=== PATIENT | female | born 1950 | race Caucasian/White ===

== ENCOUNTER 2018-12-19 14:05 | Inpatient (IN) | payer MEDICARE, OTHER ==
[2018-12-19] MEDS ORDERED: SODIUM CHLORIDE 0.9% 1,000 ML IV ONE (14:27)
[2018-12-19] MEDS ORDERED: IPRATROPIUM/ALBUTEROL 3 ML NEB INH STA (14:27)
--- NOTE | 2018-12-19 14:30 | ED Physician Documentation ---
PD HPI URI - Stated complaint Stated Complaint: WEAKNESS/BODY ACHES - Chief complaint Chief Complaint: Resp - History obtained from History obtained from: Patient - History of Present Illness Timing - onset: How many days ago (9) Timing duration: Days (9) Timing details: Gradual onset, Still present Associated symptoms: Fever, Chills, Sweats, Nasal congestion, Rhinorrhea, Productive cough, Dyspnea Improves by: Rest, Medication Worsened by: Activity Similar symptoms before: No diagnosis Recently seen: Clinic - Additional information Additional information: 68-year-old female with a history of psoriasis who is on methotrexate has developed a cough and congestion over the past 9 days. She has had fever production of yellow and green phlegm and shortness of breath associated with this. She does state that she has had episodes over the past several months of similar illness. She states she is not sure this has ever gone away. She does acknowledge some difficulty hearing. Review of Systems Constitutional: reports: Fever, Chills, Myalgias, Fatigue, Sweats Eyes: denies: Decreased vision Ears: reports: Loss of hearing. denies: Ear pain Nose: reports: Rhinorrhea / runny nose, Congestion Throat: denies: Sore throat Cardiac: denies: Chest pain / pressure, Palpitations Respiratory: reports: Dyspnea, Cough GI: denies: Abdominal Pain, Nausea, Vomiting : denies: Dysuria Skin: denies: Rash Musculoskeletal: denies: Neck pain, Back pain, Extremity pain Neurologic: reports: Generalized weakness. denies: Focal weakness, Numbness PD PAST MEDICAL HISTORY - Present Medications Home Medications: Ambulatory Orders Medication Instructions Recorded Confirmed Folic Acid 1 mg PO DAILY 12/19/18 12/19/18 - Allergies Allergies/Adverse Reactions: Allergies Allergy/AdvReac Type Severity Reaction Status Date / Time Penicillins Allergy Rash Verified 12/19/18 14:12 PD ED PE NORMAL - Vitals Vital signs reviewed: Yes (tachycarci, tachypneic and hypertensive ) - General General: Well developed/nourished - HEENT HEENT: Atraumatic, PERRL, EOMI, Other (minimal inflmation to both TM's dry mucous membranes ) - Neck Neck: Supple, no meningeal sign, No bony TTP - Cardiac Cardiac: No murmur, Other (tachy and regular) - Respiratory Respiratory: Other (tachypneic at rest with scattered wheezes and rhonchi in all conroy. ) - Abdomen Abdomen: Soft, Non tender - Back Back: No CVA TTP, No spinal TTP - Derm Derm: Normal color, Warm and dry, No rash - Extremities Extremities: No deformity, No edema - Neuro Neuro: Alert and oriented X 3, cooler room worker 2-12 intact, No motor deficit, No sensory deficit Eye Opening: Spontaneous Motor: Obeys Commands Verbal: Oriented GCS Score: 15 - Psych Psych: Normal mood, Other (affect is flat ) Results - Vitals Vitals: Vital Signs - 24 hr 12/19/18 12/19/18 12/19/18 14:09 14:20 14:44 Temperature 37.7 C H 39.6 C H Heart Rate 125 H 136 H 126 H Respiratory 22 26 H 22 Rate Blood Pressure 146/89 H 131/76 H O2 Saturation 97 97 12/19/18 14:45 Temperature Heart Rate 122 H Respiratory 28 H Rate Blood Pressure 123/79 O2 Saturation 100 Oxygen O2 Source Nasal cannula Oxygen Flow Rate 2 - Labs Labs: Laboratory Tests 12/19/18 12/19/18 12/19/18 14:31 14:31 14:31 WBC 22.2 H RBC 4.21 Hgb 11.8 L Hct 35.8 L MCV 84.9 MCH 28.0 MCHC 32.9 RDW 16.3 H Plt Count 336 MPV 7.9 Neut # (Auto) Not Reportable Lymph # (Auto) Not Reportable [place] # (Auto) Not Reportable Eos # (Auto) Not Reportable Baso # (Auto) Not Reportable Absolute Nucleated RBC Not Reportable Total Counted 100 Band Neuts % (Manual) 13 H Abnorm Lymph % (Manual) 0 Nucleated RBC % Not Reportable Neutrophils # (Manual) 22.0 H Lymphocytes # (Manual) 0.0 L Monocytes # (Manual) 0.2 Eosinophils # (Manual) 0.0 Basophils # (Manual) 0.0 Differential Comment MANUAL DIFFERENTIAL WBC Morphology NORMAL APPEARANCE Platelet Estimate NORMAL (130-450,000) Platelet Morphology NORMAL APPEARANCE RBC Morph Micro Appear 1+ ANISOCYTOSIS Sodium 130 L Potassium 3.3 L Chloride 90 L Carbon Dioxide 26 Anion Gap 14.0 H BUN 8 Creatinine 0.7 Estimated GFR (MDRD) 84 L Glucose 123 H Glycated Hemoglobin Estim Average Glucose Lactic Acid Calcium 9.2 Magnesium Total Bilirubin 0.9 AST 33 ALT 33 Alkaline Phosphatase 123 H Troponin I < 0.04 Total Protein 7.4 Albumin 3.1 L Globulin 4.3 H Albumin/Globulin Ratio 0.7 L Lipase 22 TSH 12/19/18 12/19/18 12/19/18 14:31 14:31 14:31 WBC RBC Hgb Hct MCV MCH MCHC RDW Plt Count MPV Neut # (Auto) Lymph # (Auto) [place] # (Auto) Eos # (Auto) Baso # (Auto) Absolute Nucleated RBC Total Counted Band Neuts % (Manual) Abnorm Lymph % (Manual) Nucleated RBC % Neutrophils # (Manual) Lymphocytes # (Manual) Monocytes # (Manual) Eosinophils # (Manual) Basophils # (Manual) Differential Comment WBC Morphology Platelet Estimate Platelet Morphology RBC Morph Micro Appear Sodium Potassium Chloride Carbon Dioxide Anion Gap BUN Creatinine Estimated GFR (MDRD) Glucose Glycated Hemoglobin 6.1 Estim Average Glucose 128 H Lactic Acid 1.4 Calcium Magnesium 1.8 Total Bilirubin AST ALT Alkaline Phosphatase Troponin I Total Protein Albumin Globulin Albumin/Globulin Ratio Lipase TSH 12/19/18 14:31 WBC RBC Hgb Hct MCV MCH MCHC RDW Plt Count MPV Neut # (Auto) Lymph # (Auto) [place] # (Auto) Eos # (Auto) Baso # (Auto) Absolute Nucleated RBC Total Counted Band Neuts % (Manual) Abnorm Lymph % (Manual) Nucleated RBC % Neutrophils # (Manual) Lymphocytes # (Manual) Monocytes # (Manual) Eosinophils # (Manual) Basophils # (Manual) Differential Comment WBC Morphology Platelet Estimate Platelet Morphology RBC Morph Micro Appear Sodium Potassium Chloride Carbon Dioxide Anion Gap BUN Creatinine Estimated GFR (MDRD) Glucose Glycated Hemoglobin Estim Average Glucose Lactic Acid Calcium Magnesium Total Bilirubin AST ALT Alkaline Phosphatase Troponin I Total Protein Albumin Globulin Albumin/Globulin Ratio Lipase TSH 1.94 - Rads (name of study) CXR Radiology: Prelim report reviewed (Impression: Multifocal right lung consolidation is suspicious for pneumonia recommend radiographic follow-up after appropriate treatment.), EMP read indepedently, See rad report Procedures - IVC sono (time) 1655 Bedside IVC sono: IVC measures (cm) (1.22), IVC collapsed c insp (cm) (complete), Dehydration (est 1 liter deficit) PD MEDICAL DECISION MAKING - ED course Complexity details: reviewed results, re-evaluated patient, considered different ial, d/w patient, d/w family ED course: See female with a 9-day history of cough and congestion with fever and dyspnea. She is administered duo-neb and saline. She is dehydrated on interrogation the inferior vena cava. She is also administered Tylenol. She has elevated WBC, fever, infiltrates on CXR, RAD and tachycardia. She is administered rocephin and tylenol as well. Dr. Fish is consulted in the case and graciously agrees to care for the patient in the hospital. Departure - Departure Disposition: [facility] DC/Xfer Clinical Impression: Pneumonia Discharge Date/Time: 12/19/18 16:31
[2018-12-19 14:41] LABS: BASOPHILS % (AUTO) 0.2 %; EOSINOPHILS % (AUTO) 0.1 %; HGB - HEMOGLOBIN 11.8 g/dL (12.0-16.0); MEAN CORPUSCULAR HGB CONC 32.9 g/dL (32.0-36.0); MEAN CORPUSCULAR VOLUME 84.9 fL (81.0-99.0); MEAN PLATELET VOLUME 7.9 fL (7.9-10.8); MONOCYTES % (AUTO) 2.8 %; NEUTROPHILS % (AUTO) 92.9 %; PLT - PLATELET COUNT 336 10^3/uL (130-450); RED BLOOD COUNT 4.21 10^6/uL (4.20-5.40); RED CELL DISTRIBUTION WIDTH 16.3 % (12.0-15.0); WHITE BLOOD COUNT 22.2 x10^3/uL (4.8-10.8)
[2018-12-19 14:46] LABS: ABNORMAL LYMPHS % (MANUAL) 0 %; LYMPHOCYTES % (MANUAL) 0 %
[2018-12-19] MEDS ORDERED: methylPREDNISolone SUCCINATE 125 MG/2 ML VIAL IVP STA (14:52)
[2018-12-19] MEDS ORDERED: cefTRIAXone 1 GM in SODIUM CHLORIDE 0.9% MINIBAG 100 ML IV STA (14:52)
[2018-12-19] MEDS ORDERED: ACETAMINOPHEN 325 MG TABLET PO STA (14:53)
[2018-12-19 14:55] LABS: ALBUMIN 3.1 g/dL (3.2-5.5); ALBUMIN/GLOBULIN RATIO 0.7 (1.0-2.2); BILIRUBIN,TOTAL 0.9 mg/dL (0.2-1.0); CALCIUM 9.2 mg/dL (8.5-10.3); CREATININE 0.7 mg/dL (0.4-1.0); TOTAL PROTEIN 7.4 g/dL (6.7-8.2)
--- NOTE | 2018-12-19 14:59 | XRAY Report ---
Reason: chest pain Procedure Date: 12/19/2018 Accession Number: [id number] / [id number] Procedure: XR - Chest 1 View X-Ray CPT Code: 29045 FULL RESULT: EXAM: CHEST RADIOGRAPHY EXAM DATE: 12/19/2018 02:45 PM. CLINICAL HISTORY: Weakness, fever, cough, body aches COMPARISON: None. TECHNIQUE: 1 view. FINDINGS: Lungs/Pleura: Patchy consolidation throughout the right upper and lower lung. The left lung is clear. No pleural effusion or pneumothorax identified. Mediastinum: Within exam limitations, the cardiomediastinal contour is normal. Other: None. IMPRESSION: Multifocal right lung consolidation is suspicious for pneumonia. Recommend radiographic follow-up after appropriate treatment. RADIA
[2018-12-19 15:09] LABS: BAND NEUTROPHILS % (MANUAL) 13 %; DIFFERENTIAL COMMENT MANUAL DIFFERENTIAL; MONOCYTES # (MANUAL) 0.2 10^3/uL (0.0-1.0); NEUTROPHILS % (MANUAL) 86 %; PLATELET ESTIMATE, MANUAL NORMAL (130-450,000) (NORMAL); PLATELET MORPHOLOGY NORMAL APPEARANCE (NORMAL); RBC MORPHOLOGY (MULTIPLE) 1+ ANISOCYTOSIS (NORMAL)
[2018-12-19] MEDS ORDERED: PROCHLORPERAZINE 10 MG/2 ML VIAL IVP PRN (15:12)
[2018-12-19] MEDS ORDERED: TEMAZEPAM 15 MG CAPSULE PO PRN (15:12)
[2018-12-19] MEDS ORDERED: ONDANSETRON ODT 4 MG TABLET TL PRN (15:12)
[2018-12-19] MEDS ORDERED: ONDANSETRON 4 MG/2 ML VIAL IVP PRN (15:12)
[2018-12-19] MEDS ORDERED: ACETAMINOPHEN 325 MG TABLET PO PRN (15:12)
--- NOTE | 2018-12-19 15:22 | HISTORY & PHYSICAL EXAMINATION ---
Chief Complaint - Chief Complaint Chief Complaint: Cough with associated body aches, generalized weakness for 9 days Respiratory Admission HPI - Admitted From Admitted from: ED - History Obtained From Records Reviewed: RN notes reviewed History obtained from: Patient, Family Exam limitations: No limitations - History of Present Illness Severity at the worst: reports: Severe Improved with: reports: Oxygen Worsened by: reports: Exertion, Inspiration Associated symptoms: reports: General weakness HPI Comment/Other: 68-year-old female with a history of psoriasis who is on methotrexate, Asthma which sounds seasonal not on a rescue inhaler at home, has developed a cough and congestion over the past 9 days. She has had fever production of yellow and green phlegm and shortness of breath associated with this. She does state that she has had episodes over the past several months of similar illness. Patient states that every time she has been given methotrexate for her psoriasis She develops this "flu" illness with severe fevers, arthralgias myalgias, with sweats and rigors. In the emergency department patient was found to have a WBC of 22.2, hemoglobin 11.8, sodium 130, potassium 3.3, creatinine 0.7, glucose 123, lactic acid only 1.4, troponin unremarkable. Patient's chest x-ray shows multifocal consolidations concerning for complicated pneumonia. On exam patient was having significant market rales to bilateral lung bases along with scattered wheezing with expiratory rhonchi and prolonged expiratory phase. Patient appeared to be toxic and ill-appearing on 2 L nasal cannula at 100% O2 saturation room air, tachypneic at 28 breaths/min, tachycardic at 136 222 bpm with a T-max of 39.6. Patient to be admitted to the ICU for further evaluation management and critical care treatment. PMH/PSH - Past Medical History Respiratory: positive: Asthma Endocrine/Autoimmune: positive: Other (Psoriasis) MRSA Hx?: No Other Past Medical History: denies other Social & Family Hx - Social History Does the pt smoke?: No Smoking Status: Never smoker Does the pt drink ETOH?: No Does the pt have substance abuse?: No Meds/Allgy - Home Medications Home Medications: Ambulatory Orders Medication Instructions Recorded Confirmed Folic Acid 1 mg PO DAILY 12/19/18 12/19/18 - Allergies Allergies/Adverse Reactions: Allergies Allergy/AdvReac Type Severity Reaction Status Date / Time Penicillins Allergy Rash Verified 12/19/18 14:12 Review of Systems - All Other Systems All Other Systems: reports: Reviewed and negative Prior Level of Functionality: Patient is ambulatory with adequate ADLs Exam - Vital Signs Reviewed Vital Signs: Yes Vital Signs: Vital Signs x48h Temp Pulse Resp BP Pulse Ox 12/19/18 14:45 122 H 28 H 123/79 100 12/19/18 14:44 126 H 22 12/19/18 14:20 39.6 C H 136 H 26 H 131/76 H 97 12/19/18 14:09 37.7 C H 125 H 22 146/89 H 97 - Physical Exam General Appearance: positive: Alert, Mild distress, Other (Ill and toxic appearing) Eyes Bilateral: positive: Normal inspection, PERRL, EOMI ENT: positive: ENT inspection nml, Pharynx nml, Dry mucous membranes (Appears dehydrated). negative: Pharyngeal erythema, Oral lesions Neck: positive: Nml inspection, Thyroid nml, No JVD, Trachea midline. negative: Thyromegaly Respiratory: positive: Chest non-tender, Wheezes (Bilateral scattered), Rales (Bilateral market rales to bases), Rhonchi, Other (Increased work of breath noted with mild retractions) Cardiovascular: positive: Regular rate & rhythm, Tachycardia. negative: No murm ur, No gallop, Irregularly irregular Peripheral Pulses: positive: 2+ Abdomen: positive: Non-tender, No organomegaly, Nml bowel sounds, No distention. negative: Tenderness Skin: positive: Color nml, No rash, Warm, Other (Patient with psoriatic lesions to bilateral lower extremities) Extremities: positive: Non-tender, Full ROM, No pedal edema, Pedal edema. negative: Calf tenderness, Joint swelling, Too's sign/cords Neurologic/Psychiatric: positive: Oriented x3, CN's nml (2-12) Results - Lab Results Lab results reviewed: Yes Fish Bones: 12/19/18 14:31 12/19/18 14:31 Other Lab Results: Lab Results x24hrs 12/19/18 12/19/18 12/19/18 Range/Units 14:31 14:31 14:31 WBC (4.8-10.8) x10^3/uL RBC (4.20-5.40) 10^6/uL Hgb (12.0-16.0) g/dL Hct (37.0-47.0) % MCV (81.0-99.0) fL MCH (27.0-31.0) pg MCHC (32.0-36.0) g/dL RDW (12.0-15.0) % Plt Count (130-450) 10^3/uL MPV (7.9-10.8) fL Neut # (Auto) Lymph # (Auto) [place] # (Auto) Eos # (Auto) Baso # (Auto) Absolute Nucleated RBC Total Counted Band Neuts % (Manual) (0 - 10) % Abnorm Lymph % (Manual) % Nucleated RBC % Neutrophils # (Manual) (1.5-6.6) 10^3/uL Lymphocytes # (Manual) (1.5-3.5) 10^3/uL Monocytes # (Manual) (0.0-1.0) 10^3/uL Eosinophils # (Manual) (0-0.7) 10^3/uL Basophils # (Manual) (0-0.1) 10^3/uL Differential Comment WBC Morphology (NORMAL) Platelet Estimate (NORMAL) Platelet Morphology (NORMAL) RBC Morph Micro Appear (NORMAL) Sodium 130 L (135-145) mmol/L Potassium 3.3 L (3.5-5.0) mmol/L Chloride 90 L (101-111) mmol/L Carbon Dioxide 26 (21-32) mmol/L Anion Gap 14.0 H (6-13) BUN 8 (6-20) mg/dL Creatinine 0.7 (0.4-1.0) mg/dL Estimated GFR (MDRD) 84 L (>89) Glucose 123 H (70-100) mg/dL Lactic Acid 1.4 (0.5-2.2) mmol/L Calcium 9.2 (8.5-10.3) mg/dL Total Bilirubin 0.9 (0.2-1.0) mg/dL AST 33 (10-42) IU/L ALT 33 (10-60) IU/L Alkaline Phosphatase 123 H (42-121) IU/L Troponin I < 0.04 (<0.49) ng/mL Total Protein 7.4 (6.7-8.2) g/dL Albumin 3.1 L (3.2-5.5) g/dL Globulin 4.3 H (2.1-4.2) g/dL Albumin/Globulin Ratio 0.7 L (1.0-2.2) Lipase 22 (22-51) U/L 12/19/18 Range/Units 14:31 WBC 22.2 H (4.8-10.8) x10^3/uL RBC 4.21 (4.20-5.40) 10^6/uL Hgb 11.8 L (12.0-16.0) g/dL Hct 35.8 L (37.0-47.0) % MCV 84.9 (81.0-99.0) fL MCH 28.0 (27.0-31.0) pg MCHC 32.9 (32.0-36.0) g/dL RDW 16.3 H (12.0-15.0) % Plt Count 336 (130-450) 10^3/uL MPV 7.9 (7.9-10.8) fL Neut # (Auto) Not Reportable Lymph # (Auto) Not Reportable [place] # (Auto) Not Reportable Eos # (Auto) Not Reportable Baso # (Auto) Not Reportable Absolute Nucleated RBC Not Reportable Total Counted 100 Band Neuts % (Manual) 13 H (0 - 10) % Abnorm Lymph % (Manual) 0 % Nucleated RBC % Not Reportable Neutrophils # (Manual) 22.0 H (1.5-6.6) 10^3/uL Lymphocytes # (Manual) 0.0 L (1.5-3.5) 10^3/uL Monocytes # (Manual) 0.2 (0.0-1.0) 10^3/uL Eosinophils # (Manual) 0.0 (0-0.7) 10^3/uL Basophils # (Manual) 0.0 (0-0.1) 10^3/uL Differential Comment MANUAL DIFFERENTIAL WBC Morphology NORMAL APPEARANCE (NORMAL) Platelet Estimate NORMAL (130-450,000) (NORMAL) Platelet Morphology NORMAL APPEARANCE (NORMAL) RBC Morph Micro Appear 1+ ANISOCYTOSIS (NORMAL) Sodium (135-145) mmol/L Potassium (3.5-5.0) mmol/L Chloride (101-111) mmol/L Carbon Dioxide (21-32) mmol/L Anion Gap (6-13) BUN (6-20) mg/dL Creatinine (0.4-1.0) mg/dL Estimated GFR (MDRD) (>89) Glucose (70-100) mg/dL Lactic Acid (0.5-2.2) mmol/L Calcium (8.5-10.3) mg/dL Total Bilirubin (0.2-1.0) mg/dL AST (10-42) IU/L ALT (10-60) IU/L Alkaline Phosphatase (42-121) IU/L Troponin I (<0.49) ng/mL Total Protein (6.7-8.2) g/dL Albumin (3.2-5.5) g/dL Globulin (2.1-4.2) g/dL Albumin/Globulin Ratio (1.0-2.2) Lipase (22-51) U/L - Diagnostic Imaging Results Diagnostic Imaging Results: positive: Final report reviewed - EKG Results EKG Interpreted Independently: No Sepsis Event Note (H) - Evaluation Current Stage of Sepsis: Sepsis Confirmed Source and Organism (if known) of Sepsis: Chest x-ray confirms multifocal pneumonia - Sepsis Criteria Sepsis Criteria: Recorded Temperature greater than 38.3C or Less than 36C, Recorded Heart Rate greater than 90 bpm, Recorded Respiratory Rate greater than 20, Respiratory: Increasing oxygen requirements, WBC count greater than 12,000 or less than 4000 Impression/Plan - Problem List Problem List: 1. Sepsis Patient likely has an immunocompromise state and therefore was susceptible to possible opportunistic infections and will be covering for anaerobic microorganisms as well as community-acquired MRSA which may have precipitated patient's pneumonia as evidenced of multifocal infiltrate seen on chest x-ray. Consider a CT chest without contrast to evaluate for possible loculations. Will place on empiric Abx with IV clindamycin. Rocephin to cover for typica bugs, PCN allergy. Placed on prophylactic lactobacillus. Blood cultures, sputum Gram stain culture ordered. Lactic acid was only 1.4. Procalcitonin would be useful in this case. Early goal-directed therapy to continue and critical care management. 2. Multifocal pneumonia Will place on early goal-directed therapy, IV clindamycin pus IV rocephin due to PCN allergy, consider CT chest if suspicious for abscess and/or loculations. Sputum Gram stain and culture to follow. RT for collection of respiratory secretions if available. Rapid strep test with throat culture to follow. Flu swab to follow. 3. Acute hypoxemic respiratory failure secondary to #1 and #2 Placed on duo nebs, incentive spiral, pulmonary toileting, send sputum for Gram stain and culture to identify organism if possible. Bronchodilator Tatian and optimize ventilation and perfusion. Supplemental oxygenation for now. May consider BiPAP if patient worsens. Patient is agreeable to an intubation. ABG to follow. 4. Acute asthma exacerbation Patient was given 1 dose of Rocephin, and Solu-Medrol in the emergency department. We will continue with duo nebs 4 times daily scheduled, add Singulair to her regimen, inhaled steroid with Pulmicort. Will likely defer off systemic steroids due to patient's immunocompromise state and existing multifocal pneumonia. 5. Myalgias/arthralgias secondary to above Patient does not have psoriatic arthritis and only dermatological component of psoriasis. However, patient likely was immunocompromised from taking meth otrexate. Patient may be experiencing methotrexate induced side effects which would include fevers, rigors, myalgias and arthralgias, leukopenia, thrombocytopenia, and pneumonitis. Patient has been on methotrexate for past 6 months. 6. Acute moderate dehydration Patient likely decreased p.o. intake for the last 9 days causing hypochloremic hyponatremia along with hypokalemia. Will place on a K rider 20 mg IV x1 and placed on LR to run at 150 mL/HR. Correct underlying electrolyte disturbance. Check magnesium. Continue to perfuse kidneys, avoid nephrotoxic agents. 7. Electrolyte disturbance Maintain IV fluid resuscitation as part of early goal-directed therapy and electrolyte disturbance repletion. ICU electrolyte repletion protocol. 8. Chronic psoriasis on methotrexate with associated immunocompromise state Will place methotrexate on hold for now. May need to consider the use of alternative agent but for now will defer to PCP who is Dr. Pathak. Patient had a referral to a commercial administrator but unable to make appointment due to her being sick. 9. Advance care planning/education and counseling Goals of care, medical conditions and plan of care discussed in detail with patient and patient elects for a full CODE STATUS and understands that BiPAP/NIPPV may be necessary. Initiate DVT/GI prophylaxis. CODE STATUS: Full code Total critical care time 30 minutes Core Measures - Anticipated LOS I expect patient to be DC'd or transferred within 96 hours.: Yes - Issues Hospital Issues and Management Plan: Patient will be admitted to ICU, will be placed on early goal-directed therapy for sepsis related to her multifocal pneumonia, breathing treatments initiated, IV antibiotics, IV fluids, medical management and critical care management to continue - DVT/VTE - Prophylaxis VTE/DVT Device ordered at admit?: Yes VTE/DVT Prophylaxis med ordered at admit?: Yes - Stroke - Rehab Assessment Rehab services assessment to be ordered?: No Not Ordered - Medical Reason: Not indicated - AMI - Statin at Admit Aspirin Prescribed on Admit: No Not Ordered - Medical Reason: Not indicated
[2018-12-19 15:50] LABS: HB2 TOTAL 13.6 g/dL; HEMOGLOBIN A1C 0.59 g/dL; HEMOGLOBIN A1C % 6.1 % (4.6-6.2)
[2018-12-19] MEDS: LACTATED RINGERS 1,000 ML IV SCH (16:53)
[2018-12-19] MEDS: POTASSIUM CHLOR 10 MEQ/100 ML 10 MEQ/100 ML BAG IV SCH ×2 (16:57→18:03)
[2018-12-19 17:12] LABS: ABG PH 7.59 (7.35-7.45)
[2018-12-19 17:13] LABS: ABG BASE EXCESS 4.8 mmol/L (-2.0-3.0); ABG HCO3 25.9 mmol/L (22.0-26.0); ABG OXYGEN SATURATION 96 % (94-98); ABG PCO2 28 mmHg (34-45); ABG PO2 73 mmHg (80-100); ABG TCO2 26.7 MMOL/L (21.0-29.0); ALLEN TEST POSITIVE
[2018-12-19] MEDS: CLINDAMYCIN 900 MG/50 ML 50 ML IV SCH (18:05)
[2018-12-19] MEDS: guaiFENesin/CODEINE 5 ML UDC PO PRN ×2 (18:08→22:02)
[2018-12-19 18:49] LABS: BILIRUBIN,URINE NEGATIVE (NEGATIVE); GLUCOSE, URINE (UA) NEGATIVE (NEGATIVE); KETONES,URINE (UA) NEGATIVE (NEGATIVE); LEUKOCYTE ESTERASE, URINE MODERATE (NEGATIVE); NITRITE,URINE NEGATIVE (NEGATIVE); OCCULT BLOOD,URINE TRACE-INTA (NEGATIVE); PROTEIN,URINE 30 mg/dL (NEGATIVE); UROBILINOGEN,URINE 0.2 (NORMAL) E.U./dL (NORMAL)
[2018-12-19 18:51] LABS: CLARITY,URINE HAZY (CLEAR)
[2018-12-19 18:58] LABS: BACTERIA,URINE Rare /HPF (None Seen); EPITHELIAL CELLS,UR FEW Transitional /HPF (<= Few); RBC,URINE 0-5 /HPF (0-5); SQUAMOUS EPITHELIAL CELL,UR MOD Squamous (<= Few)
[2018-12-19] MEDS: IPRATROPIUM/ALBUTEROL 3 ML NEB INH SCH (19:31)
[2018-12-19] MEDS: FAMOTIDINE 20 MG/2 ML VIAL IVP SCH (21:26)
[2018-12-19] MEDS: MONTELUKAST 10 MG TABLET PO SCH (21:26)
[2018-12-19] MEDS: SODIUM CHLORIDE FLUSH 0.9% 10 ML SYRINGE IVP SCH (21:30)
[2018-12-19] MEDS ORDERED: MORPHINE 2 MG/ML SYRINGE IVP PRN (23:28)
[2018-12-19] MEDS ORDERED: MORPHINE 2 MG/ML CARPUJECT ONE (23:47)
[2018-12-20] MEDS: CLINDAMYCIN 900 MG/50 ML 50 ML IV SCH ×5 (00:11→23:48)
[2018-12-20] MEDS: LACTATED RINGERS 1,000 ML IV SCH (00:12)
[2018-12-20] MEDS ORDERED: LACTATED RINGERS 1,000 ML IV ONE (00:17)
[2018-12-20] MEDS: SODIUM CHLORIDE FLUSH 0.9% 10 ML SYRINGE IVP SCH ×3 (01:44→18:47)
[2018-12-20] MEDS: guaiFENesin/CODEINE 5 ML UDC PO PRN ×5 (01:57→18:47)
[2018-12-20 05:47] LABS: BASOPHILS % (AUTO) 0.1 %; LYMPHOCYTES # (AUTO) 0.6 10^3/uL (1.5-3.5); LYMPHOCYTES % (AUTO) 3.1 %; MEAN CORPUSCULAR HEMOGLOBIN 27.6 pg (27.0-31.0); MEAN CORPUSCULAR HGB CONC 32.1 g/dL (32.0-36.0); MEAN PLATELET VOLUME 7.9 fL (7.9-10.8); MONOCYTES # (AUTO) 0.4 10^3/uL (0.0-1.0); MONOCYTES % (AUTO) 2.4 %; NEUTROPHILS # (AUTO) 17.2 10^3/uL (1.5-6.6); NEUTROPHILS % (AUTO) 94.4 %; PLT - PLATELET COUNT 307 10^3/uL (130-450); RED BLOOD COUNT 3.98 10^6/uL (4.20-5.40); RED CELL DISTRIBUTION WIDTH 15.8 % (12.0-15.0); WHITE BLOOD COUNT 18.3 x10^3/uL (4.8-10.8)
[2018-12-20 05:57] LABS: ALBUMIN 2.7 g/dL (3.2-5.5); CALCIUM 8.8 mg/dL (8.5-10.3); CREATININE 0.7 mg/dL (0.4-1.0); PHOSPHORUS 3.6 mg/dL (2.5-4.6)
[2018-12-20] MEDS ORDERED: SODIUM CHLORIDE 0.9% 1,000 ML IV ONE (08:51)
[2018-12-20] MEDS: cefTRIAXone 2 GM in SODIUM CHLORIDE 0.9% MINIBAG 100 ML IV SCH (08:54)
[2018-12-20] MEDS: FAMOTIDINE 20 MG/2 ML VIAL IVP SCH ×2 (08:57→20:48)
[2018-12-20] MEDS ORDERED: POLYETHYLENE GLYCOL 3350 17 GM PACKET PO SCH (09:00)
[2018-12-20] MEDS ORDERED: SODIUM CHLORIDE 0.9% 1,000 ML IV SCH (09:00)
--- NOTE | 2018-12-20 09:01 | MISCELLANEOUS PROVIDER NOTE ---
Miscellaneous Provider Note - - Note: HPI Comment/Other: 68-year-old female with a history of psoriasis who is on methotrexate, Asthma which sounds seasonal not on a rescue inhaler at home, has developed a cough and congestion over the past 9 days. She has had fever production of yellow and green phlegm and shortness of breath associated with this. She does state that she has had episodes over the past several months of similar illness. Patient states that every time she has been given methotrexate for her psoriasis She develops this "flu" illness with severe fevers, arthralgias myalgias, with sweats and rigors. In the emergency department patient was found to have a WBC of 22.2, hemoglobin 11.8, sodium 130, potassium 3.3, creatinine 0.7, glucose 123, lactic acid only 1.4, troponin unremarkable. Patient's chest x-ray shows multifocal consolidations concerning for complicated pneumonia. On exam patient was having significant market rales to bilateral lung bases along with scattered wheezing with expiratory rhonchi and prolonged expiratory phase. Patient appeared to be toxic and ill-appearing on 2 L nasal cannula at 100% O2 saturation room air, tachypneic at 28 breaths/min, tachycardic at 136 222 bpm with a T-max of 39.6. Patient to be admitted to the ICU for further evaluation management and critical care treatment. Subjective: Patient seen at bedside with continued sputum production of rcystal brown color without evidence of increasing oxygen requirement currently on 2 L nasal cannula. Patient continues with productive cough, subjective fevers and chills, and generalized weakness. No acute overnight events. Objective: Vital signs are hemodynamically stable currently afebrile, heart rate of 103 bpm, blood pressure 130/77, variable tachypnea between 17 and 44 breaths/min. 95% O2 saturation on 2 L nasal cannula General: Patient is asleep and in no acute respiratory distress. Neck: no Bruits, no MATEUS, Trachea midline, no thyromegaly CV/lungs: Tachycardia, no murmurs, gallops or clicks. No rubs. Decreased breath sounds bibasilarly with marked rales to the bases and expiratory rhonchi with no wheezing. No increase WOB/retractions. Extremities/skin: No edema clubbing or cyanosis. Psoriatic lesions to the lower extremities present. Labs: Reviewed Imaging studies: Reviewed Assessment/plan: 1. Sepsis, Resolving Improved with downtrending WBC seen. Persistent tachycardia may be secondary to DuoNeb's. There is bandemia noted at 13%. Likely secondary to multifocal commute acquired pneumonia with possible underlying immunocompromised state secondary to methotrexate. Currently patient's blood cultures are pending, sputum culture shows preliminary many gram-positive cocci with good specimen. Patient to continue with empiric IV antibiotic coverage with a penicillin allergy, IV clindamycin plus Rocephin. May consider de-escalation, Once identification of microorganism is seen. 2. Multifocal pneumonia Patient likely has Streptococcus pneumonia as evidenced by crystal brown sputum. Continue with IV clindamycin plus Rocephin due to penicillin allergy. Would consider CT chest if worsening symptoms or increased oxygen requirement to evaluate for abscess formation and or loculations, or parapneumonic effusions. Continue with pulmonary toileting, nebs, incentive spirometry. 3. Acute hypoxemic respiratory failure secondary to #1 and #2 Continue with bronchodilator Therapy, supplemental oxygenation, incentive spirometry, serial ABGs as indicated, consideration for BiPAP if worsening hypoxemia. ABG indicates hyperventilation with no overt ventilation/perfusion deficits. 4. Acute asthma exacerbation To continue with aggressive respiratory medical management, deferring off of systemic steroids for now, continue with Pulmicort, Singulair, and management as delineated by above. Patient has significant coughing at night, continue with supportive care; antitussives. 5. Myalgias/arthralgias secondary to above, Improved Patient does not have psoriatic arthritis and only dermatological component of psoriasis. However, patient likely was immunocompromised from taking methotrexate. Patient may be experiencing methotrexate induced side effects which would include fevers, rigors, myalgias and arthralgias, leukopenia, thrombocytopenia, and pneumonitis. Patient has been on methotrexate for past 6 months. 6. Acute moderate dehydration; Resolved Electrolyte disturbances have resolved. Due to LR interacting with Rocephin we will switch out to normal saline now. Patient likely decreased p.o. intake for the last 9 days causing hypochloremic hyponatremia along with hypokalemia. Continue to perfuse kidneys, avoid nephrotoxic agents. 7. Electrolyte disturbance; Resolved Will decrease normal saline to 75 mL/HRS as patient has a return to her appetite and increased PO intake now. ICU electrolyte repletion protocol. 8. Chronic psoriasis on methotrexate with associated immunocompromise state Continue holding methotrexate for now. May need to consider the use of alternative agent but for now will defer to PCP who is Dr. Pathak. Patient had a referral to a gameroom technician but unable to make appointment due to her being sick. 9. Morbid obesity. Will provide education counseling on weight loss management as an outpatient. Comorbidities would include obstructive sleep apnea as patient requires supplemental oxygenation on this admission. May benefit from a nighttime pulse oximetry. Patient denies being on nighttime CPAP, or underlying KATYA. Will have PCP referred to sleep study if needed as an outpatient. 10. Advance care planning/education and counseling Goals of care, medical conditions and plan of care discussed in detail with patient and patient elects for a full CODE STATUS and understands that BiPAP/NIPPV may be necessary. Continue with DVT/GI prophylaxis. CODE STATUS: Full code
[2018-12-20] MEDS: IPRATROPIUM/ALBUTEROL 3 ML NEB INH SCH ×4 (09:46→19:23)
[2018-12-20] MEDS: ENOXAPARIN 40 MG/0.4 ML SYRINGE SUBQ SCH (10:17)
[2018-12-20] MEDS: FOLIC ACID 1 MG TABLET PO SCH (10:18)
[2018-12-20] MEDS ORDERED: POTASSIUM CHLORIDE 20 MEQ TABLET PO ONE (10:34)
[2018-12-20] MEDS ORDERED: ZOLPIDEM 5 MG TABLET PO PRN (14:19)
[2018-12-20] MEDS: LACTOBACILLUS RHAMNOSUS GG CAPSULE PO SCH (14:21)
[2018-12-20] MEDS ORDERED: BENZONATATE 100 MG CAPSULE PO PRN (14:21)
[2018-12-20] MEDS: SODIUM CHLORIDE 0.9% 1,000 ML IV SCH ×2 (14:22→20:08)
[2018-12-20] MEDS ORDERED: guaiFENesin/CODEINE 5 ML UDC PO ONE (14:45)
[2018-12-20] MEDS: HYDROcod/ACETAM 7.5 MG/325 MG TABLET PO PRN (19:16)
[2018-12-20] MEDS ORDERED: CYCLOBENZAPRINE 10 MG TABLET PO PRN (19:22)
[2018-12-20] MEDS ORDERED: CALCIUM CARBONATE CHEW 500 MG TABLET PO PRN (20:39)
[2018-12-20] MEDS: MONTELUKAST 10 MG TABLET PO SCH (20:48)
[2018-12-20] MEDS: KETOROLAC 30 MG/ML VIAL IVP PRN (22:22)
[2018-12-21] MEDS: SODIUM CHLORIDE FLUSH 0.9% 10 ML SYRINGE IVP SCH ×5 (00:30→20:50)
[2018-12-21] MEDS: HYDROcod/ACETAM 7.5 MG/325 MG TABLET PO PRN (02:34)
[2018-12-21] MEDS: KETOROLAC 30 MG/ML VIAL IVP PRN (04:48)
[2018-12-21 04:56] LABS: BASOPHILS % (AUTO) 0.2 %; EOSINOPHILS # (AUTO) 0.1 10^3/uL (0.0-0.7); EOSINOPHILS % (AUTO) 0.4 %; LYMPHOCYTES # (AUTO) 0.9 10^3/uL (1.5-3.5); LYMPHOCYTES % (AUTO) 6.6 %; MEAN CORPUSCULAR HEMOGLOBIN 28.7 pg (27.0-31.0); MEAN CORPUSCULAR HGB CONC 32.8 g/dL (32.0-36.0); MEAN CORPUSCULAR VOLUME 87.5 fL (81.0-99.0); MONOCYTES # (AUTO) 0.5 10^3/uL (0.0-1.0); MONOCYTES % (AUTO) 3.5 %; NEUTROPHILS # (AUTO) 11.8 10^3/uL (1.5-6.6); NEUTROPHILS % (AUTO) 89.3 %; PLT - PLATELET COUNT 303 10^3/uL (130-450); RED BLOOD COUNT 3.84 10^6/uL (4.20-5.40); RED CELL DISTRIBUTION WIDTH 16.3 % (12.0-15.0); WHITE BLOOD COUNT 13.2 x10^3/uL (4.8-10.8)
[2018-12-21 05:07] LABS: ALBUMIN 2.5 g/dL (3.2-5.5); CALCIUM 7.9 mg/dL (8.5-10.3); CREATININE 0.5 mg/dL (0.4-1.0); PHOSPHORUS 3.4 mg/dL (2.5-4.6)
[2018-12-21 05:18] LABS: PHOSPHORUS 3.5 mg/dL (2.5-4.6)
[2018-12-21] MEDS: CLINDAMYCIN 900 MG/50 ML 50 ML IV SCH ×2 (05:52→12:08)
[2018-12-21] MEDS: IPRATROPIUM/ALBUTEROL 3 ML NEB INH SCH ×4 (07:07→19:49)
[2018-12-21] MEDS ORDERED: POTASSIUM CHLORIDE 20 MEQ TABLET PO ONE (08:00)
--- NOTE | 2018-12-21 08:35 | MISCELLANEOUS PROVIDER NOTE ---
Miscellaneous Provider Note - - Note: HPI Comment/Other: 68-year-old female with a history of psoriasis who is on methotrexate, Asthma which sounds seasonal not on a rescue inhaler at home, has developed a cough and congestion over the past 9 days. She has had fever production of yellow and green phlegm and shortness of breath associated with this. She does state that she has had episodes over the past several months of similar illness. Patient states that every time she has been given methotrexate for her psoriasis She develops this "flu" illness with severe fevers, arthralgias myalgias, with sweats and rigors. In the emergency department patient was found to have a WBC of 22.2, hemoglobin 11.8, sodium 130, potassium 3.3, creatinine 0.7, glucose 123, lactic acid only 1.4, troponin unremarkable. Patient's chest x-ray shows multifocal consolidations concerning for complicated pneumonia. On exam patient was having significant market rales to bilateral lung bases along with scattered wheezing with expiratory rhonchi and prolonged expiratory phase. Patient appeared to be toxic and ill-appearing on 2 L nasal cannula at 100% O2 saturation room air, tachypneic at 28 breaths/min, tachycardic at 136 222 bpm with a T-max of 39.6. Patient to be admitted to the ICU for further evaluation management and critical care treatment. Subjective: Patient has improved respiratory function however still having some wheezing and dyspnea on exertion. She appears physically deconditioned. Patient's productive cough has improved significantly as well with associated pleuritic chest pain. Crsytal brown sputum has also been not as copious as previously. Objective: Vital signs are hemodynamically stable currently afebrile, Heart rate 104 bpm, blood pressure 153/83, respiratory rate 21-26, non-hypoxemic currently on room air. General: Morbidly obese with a BMI of 39.7. Patient in no acute respiratory distress speaking full sentences. Neck: no Bruits, no MATEUS, Trachea midline, no thyromegaly CV/lungs: Tachycardia, no murmurs, gallops or clicks. No rubs. Improved aeration of bibasilar lungs with faint rales and scattered wheezing. Extremities/skin: No edema clubbing or cyanosis. Psoriatic lesions to the lower extremities present. Labs: Reviewed Imaging studies: Reviewed Assessment/plan: 1. Sepsis, Resolving Improved with downtrending WBC seen. Persistent tachycardia may be secondary to DuoNeb's. There is bandemia noted at 13%. Likely secondary to multifocal commute acquired pneumonia with possible underlying immunocompromised state secondary to methotrexate. Currently blood cultures are negative growth today a fter 2 days, sputum culture Shows beta-hemolytic group A strep likely Streptococcus pneumonia. De-escalation to oral 3rd gen Cephalosporin indicated. 2. Multifocal pneumonia Patient sputum is growing out beta-hemolytic group a streptococcus which is usually susceptible susceptible to penicillin, clindamycin, amoxicillin, cephalosporins. Patient likely has Streptococcus pneumonia as evidenced by crystal brown sputum. De-escalation to oral 3rd gen Cephalosporin indicated. Continue with pulmonary toileting, nebs, incentive spirometry. 3. Acute hypoxemic respiratory failure secondary to #1 and #2, Resolved Continue with bronchodilator Therapy, supplemental oxygenation, incentive spirometry, Patient to have a pulse oximetry nighttime as well as pulse oximetry at rest and on exertion. 4. Acute asthma exacerbation, Improved Still having some faint wheezing. To continue with aggressive respiratory medical management, deferring off of systemic steroids for now, continue with Pulmicort, Singulair, and management as delineated by above. Patient is coughing has improved significantly. Patient to receive Advair or Symbicort on discharge. 5. Myalgias/arthralgias secondary to above, Improved Patient does not have psoriatic arthritis and only dermatological component of psoriasis. However, patient likely was immunocompromised from taking methotrexate. Patient may be experiencing methotrexate induced side effects which would include fevers, rigors, myalgias and arthralgias, leukopenia, thrombocytopenia, and pneumonitis. Patient has been on methotrexate for past 6 months. 6. Acute moderate dehydration; Resolved Electrolyte disturbances have resolved. Due to LR interacting with Rocephin we will switch out to normal saline now. Patient likely decreased p.o. intake for the last 9 days causing hypochloremic hyponatremia along with hypokalemia. Continue to perfuse kidneys, avoid nephrotoxic agents. 7. Electrolyte disturbance; Resolved Discontinue IV fluids, good oral intake now. ICU electrolyte repletion protocol. 8. Chronic psoriasis on methotrexate with associated immunocompromise state Methotrexate on hold for now. May need to consider the use of alternative agent but for now will defer to PCP who is Dr. Pathak. Patient had a referral to a java scala developer but unable to make appointment due to her being sick. 9. Morbid obesity Will provide education counseling on weight loss management as an outpatient. Patient with some deconditioning and will see if she is able to ambulate without physical therapy. 10. Suspected obstructive sleep apnea Would obtain a pulse oximetry at night or RT to have patient have pulse oximetry @ rest and on exertion Suspected obstructive sleep apnea as patient has clinical indicators such as BMI>35, snores at night with daytime sleepiness, required supplemental oxygenation on this admission. Patient may qualify for home O2 use. Patient denies being on nighttime CPAP, or underlying KATYA. Will have PCP referred to sleep study if needed as an outpatient. 11. Advance care planning/education and counseling Goals of care, medical conditions and plan of care discussed in detail with patient and patient elects for a full CODE STATUS and understands that BiPAP/NIPPV may be necessary. Continue with DVT/GI prophylaxis. CODE STATUS: Full code
[2018-12-21] MEDS: FAMOTIDINE 20 MG/2 ML VIAL IVP SCH ×2 (08:45→20:49)
[2018-12-21] MEDS: TRIAMCINOLONE 55 MCG NASAL SPRAY NAS SCH (08:45)
[2018-12-21] MEDS: POLYETHYLENE GLYCOL 3350 17 GM PACKET PO SCH (08:46)
[2018-12-21] MEDS: cefTRIAXone 2 GM in SODIUM CHLORIDE 0.9% MINIBAG 100 ML IV SCH (08:46)
[2018-12-21] MEDS: FOLIC ACID 1 MG TABLET PO SCH (08:47)
[2018-12-21] MEDS: ENOXAPARIN 40 MG/0.4 ML SYRINGE SUBQ SCH (08:47)
[2018-12-21] MEDS: LACTOBACILLUS RHAMNOSUS GG CAPSULE PO SCH (08:47)
[2018-12-21] MEDS: DULoxetine 30 MG CAPSULE PO SCH (08:47)
[2018-12-21] MEDS: BUDESONIDE 0.5 MG/2 ML NEB INH SCH ×2 (11:23→19:49)
[2018-12-21] MEDS: MONTELUKAST 10 MG TABLET PO SCH (20:49)
[2018-12-21] MEDS: GABAPENTIN 300 MG CAPSULE PO SCH (20:49)
[2018-12-21] MEDS: guaiFENesin/CODEINE 5 ML UDC PO PRN (23:40)
[2018-12-21] MEDS: ALBUTEROL NEB 2.5 MG/3 ML INH PRN (23:49)
[2018-12-22] MEDS: guaiFENesin/CODEINE 5 ML UDC PO PRN ×4 (03:55→19:53)
[2018-12-22] MEDS: ALBUTEROL NEB 2.5 MG/3 ML INH PRN (03:57)
[2018-12-22 05:07] LABS: BASOPHILS % (AUTO) 0.3 %; EOSINOPHILS # (AUTO) 0.2 10^3/uL (0.0-0.7); EOSINOPHILS % (AUTO) 1.7 %; LYMPHOCYTES # (AUTO) 1.2 10^3/uL (1.5-3.5); LYMPHOCYTES % (AUTO) 11.8 %; MEAN CORPUSCULAR HEMOGLOBIN 29.1 pg (27.0-31.0); MEAN CORPUSCULAR HGB CONC 33.3 g/dL (32.0-36.0); MEAN CORPUSCULAR VOLUME 87.3 fL (81.0-99.0); MEAN PLATELET VOLUME 7.9 fL (7.9-10.8); MONOCYTES # (AUTO) 0.5 10^3/uL (0.0-1.0); MONOCYTES % (AUTO) 4.6 %; NEUTROPHILS # (AUTO) 8.5 10^3/uL (1.5-6.6); NEUTROPHILS % (AUTO) 81.6 %; PLT - PLATELET COUNT 330 10^3/uL (130-450); RED CELL DISTRIBUTION WIDTH 16.6 % (12.0-15.0); WHITE BLOOD COUNT 10.4 x10^3/uL (4.8-10.8)
[2018-12-22 05:17] LABS: ALBUMIN 2.7 g/dL (3.2-5.5); CALCIUM 8.6 mg/dL (8.5-10.3); CREATININE 0.4 mg/dL (0.4-1.0)
[2018-12-22 05:25] LABS: PHOSPHORUS 3.9 mg/dL (2.5-4.6)
[2018-12-22] MEDS ORDERED: POTASSIUM CHLORIDE 20 MEQ TABLET PO STA (06:52)
[2018-12-22] MEDS: BUDESONIDE 0.5 MG/2 ML NEB INH SCH ×2 (07:30→19:34)
[2018-12-22] MEDS: IPRATROPIUM/ALBUTEROL 3 ML NEB INH SCH (07:30)
[2018-12-22] MEDS: DULoxetine 30 MG CAPSULE PO SCH (08:08)
[2018-12-22] MEDS: LACTOBACILLUS RHAMNOSUS GG CAPSULE PO SCH (08:12)
[2018-12-22] MEDS: FAMOTIDINE 20 MG TABLET PO SCH ×2 (08:12→21:34)
[2018-12-22] MEDS: FOLIC ACID 1 MG TABLET PO SCH (08:12)
[2018-12-22] MEDS: ENOXAPARIN 40 MG/0.4 ML SYRINGE SUBQ SCH (08:14)
[2018-12-22] MEDS: POLYETHYLENE GLYCOL 3350 17 GM PACKET PO SCH (08:15)
[2018-12-22] MEDS: TRIAMCINOLONE 55 MCG NASAL SPRAY NAS SCH (08:16)
[2018-12-22] MEDS: SODIUM CHLORIDE FLUSH 0.9% 10 ML SYRINGE IVP SCH ×3 (08:16→21:35)
[2018-12-22] MEDS: CEFPODOXIME PROXETIL 100 MG TABLET PO SCH ×2 (09:05→16:56)
[2018-12-22] MEDS: diltiaZEM CD 120 MG CAPSULE PO SCH (10:31)
[2018-12-22] MEDS: SODIUM CHLORIDE FLUSH 0.9% 10 ML SYRINGE IVP PRN (10:35)
[2018-12-22] MEDS: methylPREDNISolone SUCCINATE 40 MG/ML VIAL IVP SCH ×3 (10:35→21:34)
[2018-12-22] MEDS: guaiFENesin 600 MG TABLET PO SCH ×2 (10:35→21:34)
--- NOTE | 2018-12-22 13:22 | PROVIDER PROGRESS NOTE ---
Assessment/Plan - Problem List (1) Pneumonia Qualifiers: Pneumonia type: due to group B Streptococcus Laterality: right Lung location: unspecified part of lung Qualified Code(s): J15.3 - Pneumonia due to streptococcus, group B Assessment/Plan: She has a multifocal PNA on CXR and her exam still shows scattered rhonchi. Her cough suppressant is prn, which will be changed to Mucinex bid. Continue antibiotics. Continue Acapella for pulmonary toilet. (2) Acute asthma exacerbation Assessment/Plan: Will add iv steroids as she is still very symptomatic even at rest. Will change albuterol to Xopenex due to resting tachycardia. Increase OOB to chair and will ask for PT eval, when not as symptomatic at rest. (3) Hypokalemia Assessment/Plan: Correct and monitor daily K. (4) Tachycardia Assessment/Plan: Likely from B-adrenergic nebulizer plus discomfort plus work of breathing. Will add Cardizem, which she needs for being hypertensive today as well. (5) Psoriasis Assessment/Plan: She describes recurrent upper respiratory exacerbations after getting Methotrexate for psoriasis, and states she will never take MTX again. (6) Sleep apnea Assessment/Plan: Stable with minimal desaturations <88% (none >5 min), per overnight oximetry study. - Current Meds Current Meds: Current Medications Generic Name Dose Route Start Last Admin Trade Name Freq PRN Reason Stop Dose Admin Hydrocodone Bitart/Acetaminophen 1 tab 12/20/18 14:20 12/21/18 02:34 [place] 7.5/325 PO 1 tab Q4HR PRN Administration back pain Benzonatate 100 mg 12/20/18 14:21 12/20/18 16:50 Tessalon PO 100 mg TID PRN Administration Cough Budesonide 0.5 mg 12/21/18 11:12 12/22/18 07:30 Pulmicort INH 0.5 mg RTBID ELVIRA Administration Calcium Carbonate/Glycine 500 mg 12/20/18 20:39 12/20/18 20:48 Tums PO 500 mg QID PRN Administration INDIGESTION Cefuroxime Axetil 200 mg 12/22/18 08:00 12/22/18 09:05 Vantin PO 200 mg BIDWM ELVIRA Administration Diltiazem HCl 120 mg 12/22/18 10:00 12/22/18 10:31 Cardizem Cd PO 120 mg DAILY ELVIRA Administration Duloxetine HCl 60 mg 12/21/18 09:00 12/22/18 08:08 Cymbalta PO 60 mg DAILY ELVIRA Administration Enoxaparin Sodium 40 mg 12/20/18 09:00 12/22/18 08:14 Lovenox SUBQ 40 mg DAILY ELVIRA Administration Famotidine 20 mg 12/22/18 09:00 12/22/18 08:12 Pepcid PO 20 mg BID ELVIRA Administration Folic Acid 1 mg 12/20/18 09:00 12/22/18 08:12 PO 1 mg DAILY ELVIRA Administration Gabapentin 300 mg 12/21/18 21:00 12/21/18 20:49 Neurontin PO 300 mg QPM ELVIRA Administration Guaifenesin 600 mg 12/22/18 10:00 12/22/18 10:35 Mucinex PO 600 mg BID ELVIRA Administration Guaifenesin/Codeine Phosphate 15 ml 12/20/18 14:21 12/22/18 09:08 Robitussin Ac PO 15 ml Q4HR PRN Administration Cough Ketorolac Tromethamine 30 mg 12/20/18 19:22 12/21/18 04:48 Toradol Inj (30mg) IVP 12/25/18 19:21 30 mg Q6HR PRN Administration PAIN Lactobacillus Rhamnosus 1 cap 12/20/18 13:50 12/22/18 08:12 Culturelle PO 1 cap DAILY ELVIRA Administration Methylprednisolone 60 mg 12/22/18 10:00 12/22/18 10:35 Solu-Medrol (40mg Vial) IVP 60 mg TID ELVIRA Administration Montelukast Sodium 10 mg 12/19/18 21:00 12/21/18 20:49 Singulair PO 10 mg QPM ELVIRA Administration Polyethylene Glycol 17 gm 12/21/18 09:00 12/22/18 08:15 Miralax PO 17 gm DAILY ELVIRA Administration Sodium Chloride 10 ml 12/19/18 17:00 12/22/18 08:16 Normal Saline Flush 0.9% IVP 10 ml 0100,0900,1700 ELVIRA Administration Sodium Chloride 10 ml 12/19/18 15:12 12/22/18 10:35 Normal Saline Flush 0.9% IVP 10 ml PRN PRN Administration NEEDED PER PROVIDER ORDERS Triamcinolone Acetonide 2 sprays 12/21/18 09:00 12/22/18 08:16 Nasacort Aq SANDRA 1 ea DAILY ELVIRA Administration - Lab Result Fish Bone Diagrams: 12/22/18 04:36 12/22/18 04:36 - Additional Planning My Orders: My Active Orders 12/22/18 09:08 Nebulizer/MDI Tx. [RC] QID Resp Teach Nebulizer/MDI [RC] .ONCE Levalbuterol [Xopenex] 1.25 mg INH Q4H PRN 12/22/18 10:00 diltiaZEM CD [Cardizem Cd] 120 mg PO DAILY guaiFENesin [Mucinex] 600 mg PO BID methylPREDNISolone SUCCINATE [SOLU-Medrol (40MG VIAL)] 60 mg IVP TID Subjective - Subjective Patient Reports: Cough (She had a coughing spasm this a.m. that felt like she was suffocating.), Shortness of Breath Objective Vital Signs: Vital Signs - 24 hr 12/21/18 12/21/18 12/21/18 15:11 17:00 19:48 Temperature 37.7 C H Heart Rate 113 H Heart Rate [ 120 H 114 H Monitoring electrodes] Respiratory 16 20 20 Rate Blood Pressure 129/70 152/95 H [Right Radial artery] O2 Saturation 98 95 12/21/18 12/21/18 12/21/18 19:49 23:37 23:49 Temperature 37.6 C H Heart Rate 116 H 109 H Heart Rate [ 111 H Monitoring electrodes] Respiratory 20 18 18 Rate Blood Pressure 148/74 H [Right Radial artery] O2 Saturation 95 12/22/18 12/22/18 12/22/18 03:55 03:57 07:24 Temperature 37.3 C 36.1 C L Heart Rate 108 H Heart Rate [ 115 H 103 H Monitoring electrodes] Respiratory 20 20 28 H Rate Blood Pressure 127/92 H 156/69 H [Right Radial artery] O2 Saturation 97 93 12/22/18 12/22/18 07:30 11:55 Temperature 36.9 C Heart Rate 104 H Heart Rate [ 104 H Monitoring electrodes] Respiratory 20 20 Rate Blood Pressure 132/66 H [Right Radial artery] O2 Saturation 94 Oxygen O2 Source Room air Oxygen Flow Rate 2 I&O (Last 24 Hrs): Intake and Output Totals x24h 12/20/18 12/21/18 12/22/18 23:59 23:59 23:59 Intake Total 8082.5 3525 1780 Output Total 5400 2000 Balance 2682.5 1525 1780 General: Alert, Oriented x3 HEENT: Mucous membr. moist/pink Neck: Supple, No JVD Neuro: Non Focal Cardiovascular: Regular rate, No murmurs Respiratory: Rhonchi Abdomen: Soft Extremities: No edema - Results Results: Laboratory Results WBC 10.4 x10^3/uL (4.8-10.8) 12/22/18 04:36 RBC 3.80 10^6/uL (4.20-5.40) L 12/22/18 04:36 Hgb 11.0 g/dL (12.0-16.0) L 12/22/18 04:36 Hct 33.1 % (37.0-47.0) L 12/22/18 04:36 MCV 87.3 fL (81.0-99.0) 12/22/18 04:36 MCH 29.1 pg (27.0-31.0) 12/22/18 04:36 MCHC 33.3 g/dL (32.0-36.0) 12/22/18 04:36 RDW 16.6 % (12.0-15.0) H 12/22/18 04:36 Plt Count 330 10^3/uL (130-450) 12/22/18 04:36 MPV 7.9 fL (7.9-10.8) 12/22/18 04:36 Neut # (Auto) 8.5 10^3/uL (1.5-6.6) H 12/22/18 04:36 Lymph # (Auto) 1.2 10^3/uL (1.5-3.5) L 12/22/18 04:36 Sargent # (Auto) 0.5 10^3/uL (0.0-1.0) 12/22/18 04:36 Eos # (Auto) 0.2 10^3/uL (0.0-0.7) 12/22/18 04:36 Baso # (Auto) 0.0 10^3/uL (0.0-0.1) 12/22/18 04:36 Absolute Nucleated RBC 0.01 x10^3/uL 12/22/18 04:36 Total Counted 100 12/19/18 14:31 Band Neuts % (Manual) 13 % (0-10) H 12/19/18 14:31 Abnorm Lymph % (Manual) 0 % 12/19/18 14:31 Nucleated RBC % 0.0 /100WBC 12/22/18 04:36 Neutrophils # (Manual) 22.0 10^3/uL (1.5-6.6) H 12/19/18 14:31 Lymphocytes # (Manual) 0.0 10^3/uL (1.5-3.5) L 12/19/18 14:31 Monocytes # (Manual) 0.2 10^3/uL (0.0-1.0) 12/19/18 14:31 Eosinophils # (Manual) 0.0 10^3/uL (0-0.7) 12/19/18 14:31 Basophils # (Manual) 0.0 10^3/uL (0-0.1) 12/19/18 14:31 Differential Comment MANUAL DIFFERENTIAL 12/19/18 14:31 WBC Morphology NORMAL APPEARANCE (NORMAL) 12/19/18 14:31 Platelet Estimate NORMAL (130-450,000) (NORMAL) 12/19/18 14:31 Platelet Morphology NORMAL APPEARANCE (NORMAL) 12/19/18 14:31 RBC Morph Micro Appear 1+ ANISOCYTOSIS (NORMAL) 12/19/18 14:31 Bld Gas Analysis Time 1712 12/19/18 17:02 Sample Site RIGHT RADIAL 12/19/18 17:02 ABG pH 7.59 (7.35-7.45) H 12/19/18 17:02 ABG pCO2 28 mmHg (34-45) L 12/19/18 17:02 ABG pO2 73 mmHg (80-100) L 12/19/18 17:02 ABG HCO3 25.9 mmol/L (22.0-26.0) 12/19/18 17:02 ABG Total CO2 26.7 MMOL/L (21.0-29.0) 12/19/18 17:02 ABG O2 Saturation 96 % (94-98) 12/19/18 17:02 ABG Base Excess 4.8 mmol/L (-2.0-3.0) H 12/19/18 17:02 Gerardo Test POSITIVE 12/19/18 17:02 Room Air YES 12/19/18 17:02 Sodium 136 mmol/L (135-145) 12/22/18 04:36 Potassium 3.2 mmol/L (3.5-5.0) L 12/22/18 04:36 Chloride 97 mmol/L (101-111) L 12/22/18 04:36 Carbon Dioxide 25 mmol/L (21-32) 12/22/18 04:36 Anion Gap 14.0 (6-13) H 12/22/18 04:36 BUN 7 mg/dL (6-20) 12/22/18 04:36 Creatinine 0.4 mg/dL (0.4-1.0) 12/22/18 04:36 Estimated GFR (MDRD) 160 (>89) 12/22/18 04:36 Glucose 117 mg/dL (70-100) H 12/22/18 04:36 Glycated Hemoglobin 6.1 % (4.6-6.2) 12/19/18 14:31 Estim Average Glucose 128 (70-100) H 12/19/18 14:31 Lactic Acid 1.4 mmol/L (0.5-2.2) 12/19/18 14:31 Calcium 8.6 mg/dL (8.5-10.3) 12/22/18 04:36 Phosphorus 3.9 mg/dL (2.5-4.6) 12/22/18 04:36 Magnesium 2.0 mg/dL (1.7-2.8) 12/22/18 04:36 Total Bilirubin 0.9 mg/dL (0.2-1.0) 12/19/18 14:31 AST 33 IU/L (10-42) 12/19/18 14:31 ALT 33 IU/L (10-60) 12/19/18 14:31 Alkaline Phosphatase 123 IU/L (42-121) H 12/19/18 14:31 Troponin I < 0.04 ng/mL (<0.49) 12/19/18 14:31 Total Protein 7.4 g/dL (6.7-8.2) 12/19/18 14:31 Albumin 2.7 g/dL (3.2-5.5) L 12/22/18 04:36 Globulin 4.3 g/dL (2.1-4.2) H 12/19/18 14:31 Albumin/Globulin Ratio 0.7 (1.0-2.2) L 12/19/18 14:31 Lipase 22 U/L (22-51) 12/19/18 14:31 TSH 1.94 uIU/mL (0.34-5.60) 12/19/18 14:31 Urine Color YELLOW 12/19/18 16:51 Urine Clarity HAZY (CLEAR) 12/19/18 16:51 Urine pH 6.0 PH (5.0-7.5) 12/19/18 16:51 Ur Specific Bryan <=1.005 (1.002-1.030) 12/19/18 16:51 Urine Protein 30 mg/dL (NEGATIVE) H 12/19/18 16:51 Urine Glucose (UA) NEGATIVE mg/dL (NEGATIVE) 12/19/18 16:51 Urine Ketones NEGATIVE mg/dL (NEGATIVE) 12/19/18 16:51 Urine Occult Blood TRACE-INTA (NEGATIVE) 12/19/18 16:51 Urine Nitrite NEGATIVE (NEGATIVE) 12/19/18 16:51 Urine Bilirubin NEGATIVE (NEGATIVE) 12/19/18 16:51 Urine Urobilinogen 0.2 (NORMAL) E.U./dL (NORMAL) 12/19/18 16:51 Ur Leukocyte Esterase MODERATE (NEGATIVE) H 12/19/18 16:51 Urine RBC 0-5 /HPF (0-5) 12/19/18 16:51 Urine WBC 6-10 /HPF (0-5) H 12/19/18 16:51 Ur Epithelial Cells FEW Transitional /HPF (<= Few) 12/19/18 16:51 Ur Squamous Epith Cells MOD Squamous (<= Few) H 12/19/18 16:51 Urine Bacteria Rare /HPF (None Seen) 12/19/18 16:51 Ur Microscopic Review INDICATED 12/19/18 16:51 Urine Culture Comments NOT INDICATED 12/19/18 16:51 Nasal Screen MRSA (PCR) NEGATIVE (NEGATIVE) 12/19/18 17:20 Influenza A (Rapid) Negative (Negative) 12/19/18 18:25 Influenza B (Rapid) Negative (Negative) 12/19/18 18:25 Group A Strep Rapid Negative (Negative) 12/19/18 18:25 Sepsis Event Note (H) - Evaluation Current Stage of Sepsis: Sepsis - Sepsis Criteria Sepsis Criteria: Recorded Temperature greater than 38.3C or Less than 36C, Recorded Heart Rate greater than 90 bpm, Recorded Respiratory Rate greater than 20, Respiratory: Increasing oxygen requirements, WBC count greater than 12,000 or less than 4000
[2018-12-22] MEDS: LEVALBUTEROL 1.25 MG/3 ML NEB INH PRN ×2 (15:10→19:34)
[2018-12-22] MEDS: GABAPENTIN 300 MG CAPSULE PO SCH (21:34)
[2018-12-22] MEDS: MONTELUKAST 10 MG TABLET PO SCH (21:34)
[2018-12-23 05:15] LABS: MAGNESIUM 2.6 mg/dL (1.7-2.8)
[2018-12-23] MEDS: methylPREDNISolone SUCCINATE 40 MG/ML VIAL IVP SCH (06:12)
[2018-12-23] MEDS: SODIUM CHLORIDE FLUSH 0.9% 10 ML SYRINGE IVP PRN (06:13)
[2018-12-23] MEDS ORDERED: POTASSIUM CHLORIDE 20 MEQ TABLET PO ONE (07:32)
[2018-12-23] MEDS: LEVALBUTEROL 1.25 MG/3 ML NEB INH PRN (07:40)
[2018-12-23] MEDS: BUDESONIDE 0.5 MG/2 ML NEB INH SCH (07:40)
[2018-12-23] MEDS ORDERED: POTASSIUM CHLORIDE 20 MEQ TABLET PO SCH (08:00)
[2018-12-23] MEDS: CEFPODOXIME PROXETIL 100 MG TABLET PO SCH (08:06)
[2018-12-23] MEDS: diltiaZEM CD 120 MG CAPSULE PO SCH (08:58)
[2018-12-23] MEDS: FOLIC ACID 1 MG TABLET PO SCH (09:00)
[2018-12-23] MEDS: FAMOTIDINE 20 MG TABLET PO SCH (09:01)
[2018-12-23] MEDS: DULoxetine 30 MG CAPSULE PO SCH (09:02)
[2018-12-23] MEDS: guaiFENesin 600 MG TABLET PO SCH (09:03)
[2018-12-23] MEDS: LACTOBACILLUS RHAMNOSUS GG CAPSULE PO SCH (09:04)
[2018-12-23] MEDS: ENOXAPARIN 40 MG/0.4 ML SYRINGE SUBQ SCH (09:05)
[2018-12-23] MEDS: SODIUM CHLORIDE FLUSH 0.9% 10 ML SYRINGE IVP SCH ×2 (09:06→09:16)
[2018-12-23] MEDS: TRIAMCINOLONE 55 MCG NASAL SPRAY NAS SCH (09:08)
[2018-12-23] MEDS: POLYETHYLENE GLYCOL 3350 17 GM PACKET PO SCH (09:15)
--- NOTE | 2018-12-23 11:16 | Discharge Plan ---
Discharge Plan Disposition: Home, Self Care Condition: Stable Prescriptions: Cefpodoxime Proxetil [Vantin] 200 mg PO BIDWM #10 tablet guaiFENesin [Mucinex] 600 mg PO BID #10 tablet Lactobacillus Rhamnosus GG [Culturelle] 1 cap PO DAILY #5 capsule predniSONE [Prednisone] 10 mg PO DAILY #14 tablet Diet: Regular Activity Restrictions: Activity as Tolerated Shower Restrictions: No Driving Restrictions: No Instruction Topics: Cefpodoxime tablets, Diltiazem tablets, Asthma Control Triggers Irritants, Asthma Control Triggers Allergens Additional Instructions or Follow Up instructions: You were admitted with a severe infection of the lungs, related to using Methotrexate, which decreases your immunity to fight infections. You needed iv antibiotics and a stay in the ICU, and you are being discharged with a prescription to take the antibiotic for several more days along with a probiotic. In addition, the infection caused your asthma to flare up. You are being sent home with a prescription for Mucinex to cough up the sputum, and steroids to help with the inflammation. You should take your inhalers on a schedule THREE TIMES A DAY to help, and as a rescue inhaler. The new prescriptions were electronically ordered at your [facility] pharmacy. Resume your other pre-hospital medications, but stop the Methotrexate. You and your PCP should decide about whether to restart it or not. See your PCP in the next 5-10 days for hospital follow-up. If you have new or worsening symptoms, contact your PCP or come to the ER. No Smoking: If you smoke, Please STOP! Call for help. Follow-up with: AMADA TO [Primary Care Provider] -
[2018-12-23 12:27] VITALS: BP 138/73
[2018-12-23] MEDS ORDERED: PROPOFOL 1000 MG/100 ML 100 ML IV ONE (18:17)
--- NOTE | 2018-12-23 19:44 | DISCHARGE SUMMARY ---
Physician: Sallie Mora MD DATE OF ADMISSION: 12/19/2018 DATE OF DISCHARGE: 12/23/2018 HISTORY OF PRESENT ILLNESS: This is a 68-year-old white female with a history of psoriasis on methotrexate, seasonal asthma, who describes two episodes of flu-like illnesses since July of this year, and a third episode that started 8 days before this admission and associated with cough, fevers, arthralgias, myalgias, sweats, and rigors. She felt weak and short of breath and presented to the emergency room and was found to have a white count of 22.2, sodium 130, potassium 3.3, lactic acid 1.4, oxygen saturation was below 88% and she appeared ill, had scattered wheezes as well as rhonchi, prolonged expiratory phase, was tachycardic at 136 beats per minute and had a temperature of 39.6 C. She was admitted to the ICU for management of findings of a multifocal pneumonia on chest x-ray and respiratory failure with hypoxia. HOSPITAL COURSE AND DISCHARGE DIAGNOSES 1. Sepsis due to pneumonia. The patient was on IV fluids, started on IV antibiotics, had blood and sputum cultures drawn. Blood cultures remained negative throughout her course, but the sputum culture grew group A Strep pyogenes. After 2 days of IV antibiotics, she was transitioned to oral antibiotics, using a third generation cephalosporin because she is ALLERGIC TO PENICILLINS. 2. Pneumonia due to group A strep. The CXR showed a multi-focal pneumonia. She remained tachypneic, with a cough and described air hunger until her final day of hospitalization and was sent home with Mucinex, po steroids and oral antibiotics to complete a 10-day total course. 3. Acute hypoxic respiratory failure. The patient had an ABG showing a pH of 7.59, pCO2 of 28 with a pO2 of only 73 indicating that she was tachypneic to maintain oxygenation. After starting the antibiotics and treatment with the pulmonary toilet, her respiratory rate improved and she was sent home as described above. 4. Acute asthma exacerbation. The patient remained tachypneic until day 4 when her IV steroids were started. Albuterol nebulizers were changed to Xopenex nebulizers to decrease tachycardia, and after this, she felt better. She noted that her exacerbations all followed treatment with methotrexate and stated that she would chose to not resume her methotrexate dosing. 5. Dehydration. The patient was tachycardic and febrile, dehydrated with hyponatremia. She received IV fluids while here. 6. Electrolyte abnormality. Patient received normal saline as well as potassium replacement IV and p.o. for potassium levels as low as 3.1. On the day of discharge, her sodium was 136, potassium was 3.2, and she got a replacement potassium oral dose following that. 7. Chronic psoriasis. Patient had no active lesions or complaints of this. The problem with being on methotrexate was concerning to her because it led to her several respiratory exacerbations this year, she escribed, as per her visits to her PCP. She will discuss further management of psoriasis with her PCP. 8. History of methotrexate (immunocompromised patient). As described above. 9. Morbid obesity. There was concern that she had sleep apnea because of her morbid obesity. An overnight oximetry study done on her third night; this did not show desaturations under 80% for longer than 1 - 2 minutes, therefore she did not require supplemental oxygen at night or a daytime oxygen order; she also had an exercise walking test done on room air with saturations remaining in the 93-95% range on the day of discharge. LABS AND IMAGING: Reviewed and summarized above. CONDITION AT DISCHARGE: Stable. PHYSICAL EXAMINATION VITAL SIGNS: Blood pressure 138/70, heart rate 93-100, afebrile, at room air saturation 98%. HEENT: Unremarkable. NECK: Without JVD or carotid bruits. CHEST: Right-sided scattered wheeze and right anterior rhonchus; left side clear. HEART: Normal, no murmurs. ABDOMEN: Soft, obese, nontender. EXTREMITIES: No edema. NEUROLOGIC: Grossly intact. FOLLOWUP: She was advised to see her PCP in the in the next 5-10 days. CODE STATUS: FULL CODE. MEDICATIONS AT THE TIME OF DISCHARGE 1. Tylenol Arthritis p.r.n. 2. Cymbalta 60 mg daily. 3. Folic acid 1 mg daily. 4. Neurontin 300 mg every night. 5. Tylenol With Codeine p.r.n. 6. Singulair 10 mg every night 7. Albuterol 2 puffs t.i.d. and q.4-h p.r.n. 8. Vantin 200 mg b.i.d. for an additional 5 days. 9. Mucinex 600 mg b.i.d. for an additional 10 days. 10. Lactobacillus 1 capsule daily for 5 days. 11. Prednisone 20 mg daily with a tapering down schedule over 12 days. cc: MD Nabil Bliss MD TD: 12/23/2018 19:04 MTDD
--- NOTE | 2018-12-24 12:47 | MISCELLANEOUS PROVIDER NOTE ---
Miscellaneous Provider Note - - Note: I called the patient on the phone to update her of the antibiotic prescription whom was called [facility] to clarify the dose. She is to take 5 more days of Vantin 200 mg BID. She was having a difficult time hearing me, so handed the phone to her , JASON who was appreciative an d stated that he would make sure to go pick this up from [facility] today. Signed: PARDEEP Johnson on behalf of Dr. Mora.
== END 2018-12-23 12:27 | disposition home or self-care (01) | DRG 871 ==
LOC: ED 14:05 → ICU 15:12
PROVIDERS: ADMIT Family Medicine; ATTEND Internal Medicine
DX: J18.9 Pneumonia, unspecified organism (principal); A40.0 Sepsis due to streptococcus, group A; J15.4 Pneumonia due to other streptococci; J96.01 Acute respiratory failure with hypoxia; H91.90 Unspecified hearing loss, unspecified ear; J45.901 Unspecified asthma with (acute) exacerbation; E87.1 Hypo-osmolality and hyponatremia; E66.2 Morbid (severe) obesity with alveolar hypoventilation; Z68.37 Body mass index [BMI] 37.0-37.9, adult; E86.0 Dehydration; E87.6 Hypokalemia; R00.0 Tachycardia, unspecified; I10 Essential (primary) hypertension; L40.9 Psoriasis, unspecified; Z79.899 Other long term (current) drug therapy
CPT/HCPCS: 36415; 36600; 71045; 80053; 80069; 81001; 82803; 83036; 83605; 83690; 83735; 84100; 84443; 84484; 85025; 87040; 87070; 87150; 87181; 87205; 87275; 87276; 87430; 94640; 94761; 96374; 99284; A9270; J1650; J2270; J7120; J7626; 81003; 87086

== ENCOUNTER 2019-05-19 12:21 | Outpatient (CLI) | payer MEDICARE, OTHER ==
--- NOTE | 2019-05-28 09:22 | Mammography Report ---
Reason: SCREENING MAMMO Procedure Date: 05/19/2019 Accession Number: [id number] / [id number] Procedure: KAMINI - Screening Mammo w/Benji CPT Code: Final Report FULL RESULT: EXAM: Screening Mammo w/Benji DATE: 05/19/2019 1:17 PM CLINICAL HISTORY: Screening encounter. Personal history of breast cancer status post right breast lumpectomy. TECHNIQUE: (B) - Bilateral CC and MLO views were obtained. Medially exaggerated left CC view is obtained. COMPARISON: None PARENCHYMAL PATTERN: (A) - The breast(s) demonstrate(s) scattered fibroglandular densities. FINDINGS: Right breast postsurgical changes are identified without associated mass. A well-circumscribed isodense nodule with central hypodensity in the right breast laterally within the axillary tail demonstrates 3-D mammographic features suggestive of a benign intramammary lymph node, 3-D cc slice 27, 3-D MLO slice 28, 15 cm from the nipple 0.5 x 1.0 cm size. In the setting of history of ipsilateral breast cancer status post lumpectomy without further specified time line in absence of prior comparison images, additional ultrasound examination of the right breast to characterize and confirm the finding is needed. There are no suspicious masses, calcifications, or areas of distortion in the left breast. IMPRESSION: Incomplete examination. BI-RADS category 0. RECOMMENDATION: (ADDUS) - Targeted ultrasound recommended. Targeted right breast ultrasound. Please note that if prior comparison images can be made available, additional examination is potentially obviated. BI-RADS CATEGORY: (0) - Incomplete Examination - need additional evaluation. STANDARD QUALIFYING STATEMENTS: 1. This examination was not reviewed with the aid of Computer-Aided Detection (CAD). 2. A negative or benign imaging report should not preclude biopsy if clinically suspicious findings are present. 3. Dense breasts may obscure an underlying neoplasm. 4. This examination was reviewed with the aid of 3D breast imaging (tomosynthesis).
== END 2019-05-19 12:22 | disposition home or self-care (01) ==
LOC: DI 12:21
DX: Z12.31 Encounter for screening mammogram for malignant neoplasm of breast (principal); R92.8 Other abnormal and inconclusive findings on diagnostic imaging of breast; Z85.3 Personal history of malignant neoplasm of breast
CPT/HCPCS: 77063; 77067

== ENCOUNTER 2019-06-09 10:05 | Outpatient (CLI) | payer MEDICARE, OTHER ==
--- NOTE | 2019-06-09 15:01 | Ultrasound Report ---
Reason: ABNORMAL MAMMOGRAM Procedure Date: 06/09/2019 Accession Number: [id number] / [id number] Procedure: US - Breast Unilateral Limited CPT Code: Final Report FULL RESULT: EXAM: Breast Unilateral Limited DATE: 06/09/2019 10:56 AM CLINICAL HISTORY: ABNORMAL MAMMOGRAM COMPARISON: None. TECHNIQUE: Targeted ultrasound was performed of the right breast in the area of clinical concern at 8:30 o'clock and 11 cm distance from the nipple. Color Doppler was employed as appropriate. FINDINGS: A typically benign appearing lymph node measuring 0.6 x 0.4 x 0.9 cm is identified in the axillary tail corresponds to the mammographic finding. No suspicious findings are made. IMPRESSION: Benign findings RECOMMENDATION: Recommend routine annual Screening mammography unless otherwise clinically indicated. BIRADS CATEGORY 2: Benign findings RADIA
== END 2019-06-09 10:06 | disposition home or self-care (01) ==
LOC: DI 10:05
PROVIDERS: ATTEND Family Medicine
DX: R92.8 Other abnormal and inconclusive findings on diagnostic imaging of breast (principal)
CPT/HCPCS: 76642

== ENCOUNTER 2020-03-03 18:54 | Outpatient (CLI) | payer MEDICARE | END 2020-03-03 18:55 | disposition home or self-care (01) | LOC: COV 18:54 | PROVIDERS: ATTEND Ophthalmology | DX: Z01.818 Encounter for other preprocedural examination (principal); H25.812 Combined forms of age-related cataract, left eye; Z20.828 Contact with and (suspected) exposure to other viral communicable diseases ==

== ENCOUNTER 2020-03-09 06:59 | Day surgery (SDC) | payer MEDICARE ==
[~2020-03-09 06:59] MED LIST: CYCLOPENTOLATE 1% OPHTH DROPS 2 ML ONE; KETOROLAC 0.45% OPHTH DROPS ONE; PHENYLEPHRINE 2.5% OPHTH 2 ML DROPS ONE; PROPARACAINE 0.5% OPHTH DROPS 15 ML ONE
[2020-03-09] MEDS ORDERED: LACTATED RINGERS 1,000 ML IV ONE (07:03)
--- NOTE | 2020-03-09 07:47 | ANESTHESIA ---
Pre-Anesthesia VS, & Labs - Diagnosis Left eye senile combined cataract - Procedure Left eye cataract extraction with IOL Vital Signs: Temp Pulse Resp BP Pulse Ox 36.1 C L 109 H 16 168/102 H 95 03/09/20 07:15 03/09/20 07:15 03/09/20 07:15 03/09/20 07:15 03/09/20 07:15 Height 5 ft 7 in Weight (kg) 118 kg Body Mass Index 37.5 - NPO >8 hours - Is Patient ?: No Home Medications and Allergies Duloxetine HCl [Cymbalta] 60 mg PO DAILY 12/20/18 Hydrocodone/Acetaminophen [Barry 5-325 Tablet] 1 each PO DAILY PRN 12/20/18 Montelukast [Singulair] 10 mg PO QPM 12/20/18 Allergies/Adverse Reactions: Allergies Allergy/AdvReac Type Severity Reaction Status Date / Time shellfish derived Allergy Severe Anaphylaxis Verified 12/21/18 17:08 shrimp Allergy Severe Anaphylaxis Verified 12/21/18 17:08 Penicillins Allergy Rash Verified 12/19/18 14:12 Anes History & Medical History - Anesthetic History Anesthesia Complications: reports: No previous complications - Medical History Cardiovascular: reports: None Pulmonary: reports: Asthma (last used inhaler 3 days ago) Gastrointestinal: reports: None Urinary: reports: None Neuro: reports: None Musculoskeletal: reports: Osteoarthritis, Chronic back pain Endocrine/Autoimmune: reports: Other Skin: reports: Psoriasis Smoking Status: Never smoker Psychosocial: reports: Anxiety (severe) - Surgical History General: Appendectomy Gynecologic: Hysterectomy, Other Exam General: Alert, Oriented x3, Cooperative, No acute distress Dental: WNL Mouth Openin Fingerbreadth Neck Mobility: Normal Mallampati classification: III Thyromental Distance: 4-6 cm Respiratory: Absent breath sounds, Wheezing (expiratory) Cardiovascular: Regular rate, Normal S1, Normal S2, No murmurs Mental/Cognitive Status: Alert/Oriented X3, Normal for patient Plan Anesthesia Type: MAC Consent for Procedure(s) Verified and Reviewed: Yes Code Status: Attempt Resuscitation ASA classification: 2-Mild systemic disease Is this case an emergency?: No
[2020-03-09] MEDS ORDERED: BRIMONIDINE 0.2% OPHTH DROPS 5 ML ONE (08:21)
[2020-03-09] MEDS ORDERED: EPINEPHrine 1 MG/ML AMP ONE (08:21)
[2020-03-09] MEDS ORDERED: TRIAMCIN/MOXIFLOX OPHTHALMIC 0.6 ML VIAL IO ONE ×2 (08:21→08:38)
[2020-03-09] MEDS ORDERED: BSS/LIDOCAINE/EPINEPHRINE 1 ML SYRINGE ONE (08:21)
[2020-03-09] MEDS ORDERED: VANCOMYCIN OPHTHALMI 8MG/0.8ML 8 MG/0.8 ML SYRINGE IO ONE ×2 (08:21→08:39)
[2020-03-09] MEDS ORDERED: TIMOLOL 0.5% OPHTH DROPS ONE (08:21)
[2020-03-09] MEDS ORDERED: MIDAZOLAM 2 MG/2 ML VIAL IVP ONE (08:29)
[2020-03-09] MEDS ORDERED: fentaNYL 100 MCG/2 ML VIAL IVP ONE (08:29)
[2020-03-09] MEDS ORDERED: BRIMONIDINE 0.2% OPHTH DROPS 5 ML OPTH ONE (08:37)
[2020-03-09] MEDS ORDERED: PROPARACAINE 0.5% OPHTH DROPS 15 ML EACHEYE ONE (08:38)
[2020-03-09] MEDS ORDERED: BSS/LIDOCAINE/EPINEPHRINE 1 ML SYRINGE IO ONE (08:38)
[2020-03-09] MEDS ORDERED: EPINEPHrine 1 MG/ML AMP IR ONE (08:38)
[2020-03-09] MEDS ORDERED: CHONDR SULF/HYALURONATE SYRINGE IO ONE (08:38)
[2020-03-09] MEDS ORDERED: TIMOLOL 0.5% OPHTH DROPS OPTH ONE (08:38)
[2020-03-09] MEDS ORDERED: LACTATED RINGERS 500 ML IV ONE (08:53)
[2020-03-09 09:00] VITALS: BP 151/77
--- NOTE | 2020-03-09 09:12 | OPERATIVE REPORT ---
DATE OF SERVICE: 03/09/2020 Physician: Rob Mcnair MD PREOPERATIVE DIAGNOSIS: Visually significant cataract, left eye. This was her first cataract surger y. POSTOPERATIVE DIAGNOSIS: Visually significant cataract, left eye. This was her first cataract surge ry. PROCEDURE: Phacoemulsification with posterior chamber intraocular lens implant, left eye. SURGEON: Rob Mcnair MD ANESTHESIA: Monitored anesthesia care. COMPLICATIONS: None. OPERATIVE INDICATIONS: This is a 69-year-old woman with progressive vision loss in the left eye due to 3+ nuclear sclerotic, 3+ cortical and 1+ posterior subcapsular cataract. Best corrected visual ac uity was 20/50, with glare to count fingers vision in the left eye. Indications for surgery are over all decrease in vision, difficulty seeing words on a computer screen, difficulty reading, difficulty seeing street signs, difficulty driving in low light or at night and difficulty driving at night vanessa use of headlights from other vehicles. She was consented at length concerning risks and benefits of cataract surgery, after which she expressed a desire to proceed with surgery. OPERATIVE PROCEDURE: Patient was taken to OR #3 and placed under monitored anesthesia care. A surgi roberta timeout was conducted confirming correct patient, correct procedure, and correct surgical site. She was given topical anesthesia, and prepped and draped in the usual sterile fashion. The eye was e ntered at the 6 and 3 o'clock positions. Intracameral Shugarcaine was injected into the anterior lisa mber followed by Viscoat. A continuous-tear curvilinear capsulorrhexis was performed. The nucleus w as hydrodissected and phacoemulsified. The cortex was evacuated using automated infusion and aspirat ion. Provisc was injected in the capsular bag, and a 17.0 diopter intraocular lens was inserted into the bag. Infusion and aspiration was used to evacuate the viscoelastic materials. The eye was infl ated to physiologic pressure using balanced salt solution and found to be watertight. Approximately 0.25 mL of a mixture of triamcinolone and moxifloxacin was injected transsclerally into the vitreous in the inferotemporal quadrant. An additional 0.55 mL of a mixture of triamcinolone, moxifloxacin an d vancomycin was injected subconjunctivally in the superior quadrant for infection and inflammation p rophylaxis. Wound integrity was checked with Weck-Shefali sponges. Patient was taken from the Operating Room in good condition and given postoperative instructions. TD: 03/09/2020 08:57
--- NOTE | 2020-03-09 19:49 | ANESTHESIA POST OP EVALUATION ---
Anesthesia Post Eval - Post Anesthesia Eval Vitals: Last Vital Signs Temp 36.2 C L 03/09/20 08:45 Pulse 111 H 03/09/20 09:00 Resp 19 03/09/20 09:00 BP 151/77 H 03/09/20 09:00 Pulse Ox 95 03/09/20 09:00 CV Function Including HR & BP: positive: Stable Pain Control: positive: Satisfactory Nausea & Vomiting: positive: Negative Mental Status: positive: Baseline Respiratory Status: Airway Patent Hydration Status: Satisfactory Anesthesia Complications: positive: None
== END 2020-03-09 07:00 | disposition home or self-care (01) ==
LOC: SDS 06:59
PROVIDERS: ATTEND Ophthalmology
DX: H25.812 Combined forms of age-related cataract, left eye (principal); J45.909 Unspecified asthma, uncomplicated; F41.9 Anxiety disorder, unspecified; Z87.891 Personal history of nicotine dependence; G89.29 Other chronic pain; M91.90 Juvenile osteochondrosis of hip and pelvis, unspecified, unspecified leg; M54.9 Dorsalgia, unspecified
CPT/HCPCS: 66984; A9270; J3490; J7120; V2632

== ENCOUNTER 2020-04-05 14:48 | Outpatient (CLI) | payer MEDICARE, OTHER ==
--- NOTE | 2020-04-05 17:11 | XRAY Report ---
PROCEDURE: Cervical Spine 2 View INDICATIONS: NECK PAIN TECHNIQUE: 3 view(s) of the cervical spine were acquired. COMPARISON: None. FINDINGS: Bones: No fractures or dislocations to the T1 level. The lateral masses of C1 appear intact on the odontoid view. No suspicious bony lesions. Note is made of mild degenerative disc disease from C3-4 through C6-7, without subluxation or definite spinal or foraminal stenosis. Soft tissues: No prevertebral soft tissue swelling. IMPRESSION: No trauma found. Mild degenerative disc disease without suspicion for presence of signif icant spinal or foraminal stenosis. Reviewed by: Tres Pritchard MD on 04/05/2020 5:10 PM PDT Approved by: Tres Pritchard MD on 04/05/2020 5:10 PM PDT Station ID: [id number]
== END 2020-04-05 14:49 | disposition home or self-care (01) ==
LOC: DI 14:48
PROVIDERS: ATTEND Physician Assistant
DX: M50.31 Other cervical disc degeneration, high cervical region (principal)
CPT/HCPCS: 72040

== ENCOUNTER 2021-05-18 09:57 | Outpatient (CLI) | payer MEDICARE ==
--- NOTE | 2021-05-22 12:09 | DEXA Report ---
PROCEDURE: Dexa Spine and/or Hip INDICATIONS: POST MENOPAUSAL TECHNIQUE: Dual energy x-ray absorptiometry (DXA) was performed on a [employer] System. Regions measur ed are the AP Spine, femoral neck, and if needed forearm. COMPARISON: None. FINDINGS: Lumbar Spine: Bone Mineral Density 1.227 g/cm/cm,T score 0.4, normal bone density Left Femoral Neck: Bone Mineral Density 1.060 g/cm/cm, T score 0.4, normal bone density (T score greater or equal to -1.0: NORMAL) (T score from -1.1 to -2.4: OSTEOPENIA) (T score less than or equal to -2.5 to: OSTEOPOROSIS) Impression: Normal bone mineral density. Patients with diagnosis of osteoporosis or osteopenia should have regular bone mineral density assess ment. For those eligible for Medicare, routine testing is allowed once every 2 years. Testing frequ ency can be increased for patients who have rapidly progressing disease or for those who are receivin g medical therapy to restore bone mass. Reviewed by: Isaac Freed MD on 05/22/2021 12:08 PM PDT Approved by: Isaac Freed MD on 05/22/2021 12:08 PM PDT Station ID: [id number]
== END 2021-05-18 09:58 | disposition home or self-care (01) ==
LOC: DI 09:57
PROVIDERS: ATTEND Physician Assistant
DX: Z13.820 Encounter for screening for osteoporosis (principal); Z78.0 Asymptomatic menopausal state; N95.8 Other specified menopausal and perimenopausal disorders

== ENCOUNTER 2021-05-18 09:59 | Outpatient (CLI) | payer MEDICARE ==
--- NOTE | 2021-05-21 08:21 | Mammography Report ---
BILATERAL DIGITAL SCREENING MAMMOGRAM 3D/2D: 05/18/2021 CLINICAL: Routine screening. Personal history of right breast cancer. Comparison is made to exams dated: 06/09/2019 ultrasound and 05/19/2019 mammogram - [facility]. There are scattered fibroglandular elements in both breasts. There are benign post operative findings in the right breast. No significant masses, calcifications, or other findings are seen in either breast. There has been no significant interval change. IMPRESSION: BENIGN There is no mammographic evidence of malignancy. A 1 year screening mammogram is recommended. This exam was interpreted at Station ID: [id number]. NOTE: For mammograms, a report in lay terms will be sent to the patient. Approximately 15% of breast malignancies will not be visualized mammographically. In the management of a palpable breast mass, a negative mammogram must not discourage biopsy of a clinically suspicious lesion. Electronically Signed By: Evan Buitrago M.D. [email or web address]:05/18/2021 11:40:54 ACR BI-RADS Category 2: Benign Finding(s) 3342F PARENCHYMAL PATTERN: (A) - The breast(s) demonstrate(s) scattered fibroglandular densities. BI-RADS CATEGORY: (2) - 2 RECOMMENDATION: (ANNUAL) - Recommend routine annual screening mammography. [id number] 1 year screening LATERALITY: (B)
== END 2021-05-18 10:00 | disposition home or self-care (01) ==
LOC: DI 09:59
PROVIDERS: ATTEND Physician Assistant
DX: Z12.31 Encounter for screening mammogram for malignant neoplasm of breast (principal); Z08 Encounter for follow-up examination after completed treatment for malignant neoplasm; Z85.3 Personal history of malignant neoplasm of breast

== ENCOUNTER 2022-01-28 11:41 | Outpatient (CLI) | payer MEDICARE, OTHER ==
--- NOTE | 2022-01-28 17:24 | XRAY Report ---
PROCEDURE: Chest 2 View X-Ray INDICATIONS: COUGH TECHNIQUE: 2 view(s) of the chest. COMPARISON: 12/19/2018. FINDINGS: Surgical changes and devices: Surgical clips in the right upper abdomen likely from prior cholecystec tesha. Lungs and pleura: Diffuse interstitial prominence. Mild perihilar airway thickening. Patchy bibasilar opacities. No focal consolidations. No substantial pleural effusion. No pneumothorax. Mediastinum: Mediastinal contours are normal. Heart size is normal. Bones and chest wall: No suspicious bony abnormalities. Soft tissues appear unremarkable. IMPRESSION: Diffuse interstitial prominence with mild perihilar airway thickening and patchy bibasil ar opacities. Findings may represent infectious/inflammatory bronchitis. Early developing airspace di sease not excluded if clinically appropriate. Recommend follow-up chest radiograph 6-8 weeks after appropriate treatment to document resolution of findings. Reviewed by: Isaac Freed MD on 01/28/2022 5:23 PM PDT Approved by: Isaac Freed MD on 01/28/2022 5:23 PM PDT Station ID: [id number]
== END 2022-01-28 11:42 | disposition home or self-care (01) ==
LOC: DI 11:41
PROVIDERS: ATTEND Physician Assistant
DX: R91.8 Other nonspecific abnormal finding of lung field (principal)

== ENCOUNTER 2022-05-23 08:56 | Day surgery (SDC) | payer MEDICARE, OTHER ==
[2022-05-23] MEDS ORDERED: KETOROLAC 0.45% OPHTH DROPS ONE (09:11)
[2022-05-23] MEDS ORDERED: CYCLOPENTOLATE 1% OPHTH DROPS 2 ML ONE (09:11)
[2022-05-23] MEDS ORDERED: PROPARACAINE 0.5% OPHTH DROPS 15 ML ONE (09:11)
[2022-05-23] MEDS ORDERED: PHENYLEPHRINE 2.5% OPHTH 2 ML DROPS ONE (09:11)
[2022-05-23] MEDS ORDERED: LACTATED RINGERS 1,000 ML IV ONE (09:33)
[2022-05-23] MEDS ORDERED: MIDAZOLAM 2 MG/2 ML VIAL ONE (10:49)
--- NOTE | 2022-05-23 10:52 | ANESTHESIA ---
Pre-Anesthesia VS, & Labs - Diagnosis R cataract - Procedure R PhacoIOL Height: 5 ft 6 in Weight (kg): 122 kg Body Mass Index: 43.4 BMI Classification: Morbidly Obese - NPO >8 hours - Is Patient ?: No Home Medications and Allergies Home Medications: Ambulatory Orders Citalopram [CeleXA] 1 tab PO DAILY 05/22/22 Hydrocodone/Acetaminophen [Parlin 5-325 Tablet] 1 each PO DAILY PRN 12/20/18 Montelukast [Singulair] 10 mg PO QPM 12/20/18 Citalopram [CeleXA] 1 tab PO DAILY 05/22/22 Allergies/Adverse Reactions: Allergies Allergy/AdvReac Type Severity Reaction Status Date / Time shellfish derived Allergy Severe Anaphylaxis Verified 05/22/22 14:17 shrimp Allergy Severe Anaphylaxis Verified 05/22/22 14:17 Penicillins Allergy Rash Verified 05/22/22 14:17 Anes History & Medical History - Anesthetic History Anesthesia Complications: reports: No previous complications Family history of Anesthesia Complications: Denies Family history of Malignant Hyperthermia: Denies - Medical History Cardiovascular: reports: None Pulmonary: reports: Asthma, CPAP use Gastrointestinal: reports: None Urinary: reports: None Neuro: reports: None Musculoskeletal: reports: Osteoarthritis, Chronic back pain Endocrine/Autoimmune: reports: Other Skin: reports: Psoriasis Smoking Status: Never smoker - Surgical History General: reports: Appendectomy Eyes Ears Nose Throat (EENT): reports: Cataracts Gynecologic: reports: Hysterectomy, Other Exam General: Alert, Oriented x3, Cooperative Dental: WNL Mouth Openin Fingerbreadth Neck Mobility: Normal Mallampati classification: III Respiratory: Lungs clear Cardiovascular: Regular rate Plan Anesthesia Type: MAC Consent for Procedure(s) Verified and Reviewed: Yes Code Status: Attempt Resuscitation ASA classification: 3-Severe systemic disease Is this case an emergency?: No
[2022-05-23] MEDS ORDERED: TIMOLOL 0.5% OPHTH DROPS OPTH ONE (11:13)
[2022-05-23] MEDS ORDERED: EPINEPHrine 1 MG/ML AMP IR ONE (11:13)
[2022-05-23] MEDS ORDERED: BRIMONIDINE 0.2% OPHTH DROPS 5 ML OPTH ONE (11:13)
[2022-05-23] MEDS ORDERED: VANCOMYCIN OPHTH (TOPICAL) 10 MG/ML SYRINGE TOP ONE (11:14)
[2022-05-23] MEDS ORDERED: TRIAMCIN/MOXIFLOX OPHTHALMIC 0.6 ML VIAL IO ONE ×2 (11:14→11:35)
[2022-05-23] MEDS ORDERED: PROPARACAINE 0.5% OPHTH DROPS 15 ML RIGHTEYE ONE (11:14)
[2022-05-23] MEDS ORDERED: BSS/LIDOCAINE/EPINEPHRINE 1 ML SYRINGE IO ONE (11:14)
[2022-05-23] MEDS ORDERED: LACTATED RINGERS 900 ML IV ONE (11:27)
--- NOTE | 2022-05-23 11:27 | OPERATIVE REPORT ---
Operative Report - Other Other Information/Narrative: Date of Surgery: 05/23/22 Preop Dx: Visually significant cataract right eye. Cataract surgery was performed in the left eye on [id number]. Postop Dx: Same Procedure: Phacoemulsification with posterior chamber intraocular lens implant right eye Surgeon: Dr. Rob Mcnair Anesthesia: Monitored anesthesia care Complications: None Operative Indications: This is a 71-year-old F with progressive vision loss in the right eye due to 3+ nuclear sclerotic and 3+ cortical cataract. Best corrected visual acuity was 20/30 with glare to 20/800 vision in the right eye. Indications for surgery were: - Overall decrease in vision - Difficulty seeing words on a computer screen - Difficulty reading - Difficulty seeing words, closed captions, or game scores on TV - Difficulty seeing street signs - Difficulty driving in low light or at night - Difficulty driving at night because of headlights from other vehicles The patient was consented at length concerning the risks and benefits of cataract surgery after which the patient expressed a desire to proceed with surgery. Operative Procedure: The patient was taken into OR#3 and placed under monitored anesthesia care. A surgical time-out was conducted confirming correct patient, correct procedure, and correct surgical site. The patient was given topical anesthesia and then prepped and draped in the usual sterile fashion. The eye was entered at the 6 and 3 oclock positions. Intracameral Shugarcaine was injected into the anterior chamber followed by a dispersive viscoelastic. A continuous-tear curvilinear capsulorhexis was performed. The nucleus was hydrodissected and phacoemulsified. The cortex was evacuated using automated infusion and aspiration. A cohesive viscoelastic was injected into the capsular bag and a 17.5 diopter intraocular lens was inserted into the bag. Infusion and aspiration were used to evacuate the viscoelastic materials from the eye. The wounds were hydrated and the eye inflated to physiologic pressure using balanced salt solution. Approximately 0.25ml of a mixture of triamcinolone and moxifloxacin was injected trans-sclerally into the vitreous in the inferotemporal quadrant using a 30 gauge cannula. An additional 0.55ml of a mixture of triamcinolone and moxifloxacin was injected subconjunctivally in the superior quadrant for infection and inflammation prophylaxis. Wound integrity was checked with Weck-Shefali sponges. The patient was taken from the operating room in good condition and given post-op instructions.
[2022-05-23] MEDS ORDERED: EPINEPHrine 1 MG/ML AMP ONE (11:35)
[2022-05-23] MEDS ORDERED: BRIMONIDINE 0.2% OPHTH DROPS 5 ML ONE (11:35)
[2022-05-23] MEDS ORDERED: BSS/LIDOCAINE/EPINEPHRINE 1 ML VIAL ONE (11:36)
[2022-05-23] MEDS ORDERED: TIMOLOL 0.5% OPHTH DROPS ONE (11:36)
[2022-05-23] MEDS ORDERED: VANCOMYCIN OPHTH (TOPICAL) 10 MG/ML SYRINGE ONE (11:36)
[2022-05-23 11:57] VITALS: BP 145/80
--- NOTE | 2022-05-23 12:41 | ANESTHESIA POST OP EVALUATION ---
Anesthesia Post Eval - Post Anesthesia Eval Vitals: Last Vital Signs Temp 36.6 C 05/23/22 11:45 Pulse 94 05/23/22 11:45 Resp 16 05/23/22 11:45 BP 145/80 H 05/23/22 11:45 Pulse Ox 96 05/23/22 11:45 O2 Flow Rate CV Function Including HR & BP: Stable Pain Control: Satisfactory Nausea & Vomiting: Negative Mental Status: Baseline Respiratory Status: Airway Patent Hydration Status: Satisfactory Anesthesia Complications: None
== END 2022-05-23 08:57 | disposition home or self-care (01) ==
LOC: SDS 08:56
PROVIDERS: ATTEND Ophthalmology
DX: H25.811 Combined forms of age-related cataract, right eye (principal); H35.3130 Nonexudative age-related macular degeneration, bilateral, stage unspecified; G47.33 Obstructive sleep apnea (adult) (pediatric); F41.0 Panic disorder [episodic paroxysmal anxiety]; J45.909 Unspecified asthma, uncomplicated; E66.01 Morbid (severe) obesity due to excess calories; Z98.42 Cataract extraction status, left eye; Z68.41 Body mass index [BMI] 40.0-44.9, adult; Z87.891 Personal history of nicotine dependence
CPT/HCPCS: 66984; A9270; J3490; J7120; V2632

== ENCOUNTER 2022-07-08 12:57 | Outpatient (CLI) | payer MEDICARE, OTHER ==
--- NOTE | 2022-07-09 10:46 | Mammography Report ---
BILATERAL DIGITAL SCREENING MAMMOGRAM 3D/2D: 07/08/2022 CLINICAL: Routine screening. Personal history of right breast cancer. Comparison is made to exams dated: 05/18/2021 mammogram, 06/09/2019 ultrasound, and 05/19/2019 mammo gram [facility]. There are scattered areas of fibroglandular density in both breasts (category b / 25%-50% glandular t issue). There are benign calcifications in both breasts. There also are benign post operative findings in th e right breast. No significant masses, calcifications, or other findings are seen in either breast. There has been no significant interval change. IMPRESSION: BENIGN There is no mammographic evidence of malignancy. A 1 year screening mammogram is recommended. This exam was interpreted at Station ID: [id number]. NOTE: For mammograms, a report in lay terms will be sent to the patient. Approximately 15% of breast malignancies will not be visualized mammographically. In the management of a palpable breast mass, a negative mammogram must not discourage biopsy of a clinically suspicious lesion. Electronically Signed By: Gucci Mullins M.D. acr/penrad:07/08/2022 17:18:18 ACR BI-RADS Category 2: Benign Finding(s) 3342F PARENCHYMAL PATTERN: (A) - The breast(s) demonstrate(s) scattered fibroglandular densities. BI-RADS CATEGORY: (2) - 2 RECOMMENDATION: (ANNUAL) - Recommend routine annual screening mammography. [id number] 1 year screening LATERALITY: (B)
== END 2022-07-08 12:58 | disposition home or self-care (01) ==
LOC: DI.N 12:57
PROVIDERS: ATTEND Student in an Organized Health Care Education/Training Program
DX: Z12.31 Encounter for screening mammogram for malignant neoplasm of breast (principal); Z85.3 Personal history of malignant neoplasm of breast

== ENCOUNTER 2023-07-23 15:45 | Outpatient (CLI) | payer MEDICARE, OTHER ==
--- NOTE | 2023-07-23 16:38 | Sleep Patient Instructions ---
Sleep Center Visit Summary - Patient Visit Information Reason for Visit: Initial consult for evaluation of sleep disordered breathing and other sleep issues. - Patient Instructions Instructions Attached: Sleep Study Home Monitor Additional Instructions: You will be completing a sleep study, either an in-lab polysomnography (PSG) or home sleep study (HST). You will follow-up in the sleep care office after the sleep study is completed to hear the results and talk about therapy, if needed. You will be called by our office staff to schedule this appointment, but you may contact us with any questions. - Clinic Information Contact: [facility] [address] [place] [address] [email or web address] T: [phone]
--- NOTE | 2023-07-23 16:55 | SLEEP CARE CONSULTATION ---
Information from patient questionnaire entered by Ledy Nielsen. I have reviewed and concur with the information entered by Ledy Nielsen. This document represents the service I personally performed and the decisions made by me, Julianne Hernandez ARNP. History of Present Illness Service Date and Time: 07/23/2023 1545 Reason for Visit: New patient, Other (using CPAP) Chief Complaint: reports: Unrefreshed sleep, Snoring, Excessive daytime sleepiness, Observed pauses in breathing, Fatigue Date of Onset: 5YRS Usual bedtime: 10PM Time it takes to fall asleep: 30-60MIN Snores at night: Yes Observed to quit breathing while asleep: Yes Number of times waking at night: 2 Reasons for waking at night: reports: Gasping for air, Pain, Bathroom, Other (UNKNOWN) Toss, Turn, or Twitch while sleeping: No Recalls having dreams: Yes Usually gets out of bed at: 8 Feels refreshed in the morning: No Morning headache: No (wakes up with "skull crushing" headaches everyday without CPAP) Sleepy or fatigued during the day: Yes Ever fallen asleep while driving: No Takes day naps: Yes (daily for hours) Prior sleep studies: No Additional HPI information: I had the pleasure of seeing BABATUNDE AVILA today regarding the possibility of her having a sleep disorder. Her current complaints are excessive daytime sleepiness, fatigue, observed pauses in breathing, snoring and unrefreshed sleep. Patient states that her told her that she snored loudly and would stop breathing at night. Her used a CPAP and when he got a replacement he gave her his old one and she started using it. She states she slept better with it and now she cannot go at night without using her CPAP. Her last year before [employer] and she has been using his machine until it stopped working. She is using an old ResMed that someone gave her that is set up with pressure at 4-10 cmH2O, but she is out of supplies to use the CPAP. She is on a limited income and cannot afford the supplies. She has never had a sleep study to verify that she has sleep apnea. She has a lot of anxiety when leaving her home and would like to be able to do the sleep study at home. She says she has multiple family members who have heart disease and she is the last one of her family left because they have all . She had a son who at 39 years old due to complications of severe sleep apnea because he would not use his CPAP. - Parasomnia Symptoms Ever been unable to move upon waking from sleep: No Walks in sleep: No Talks in sleep: Yes Ever acted out dreams in sleep: Yes Ever felt weak in the knees when startled or emotional: No Bothered by creepy, crawly, restless sensations in legs: No Problems with memory or concentration: Yes CPAP Compliance Data Compliance data discussion: She has been using a CPAP that she was given which has pressures set at 4-10 cmH2O. She has been using an older ResMed machine which the humidifier is not working and it is leaking water. She uses a nasal pillow mask. We were unable to get any further information from the machine. Subjective Initial [place] Sleepiness Scale score: 9 (07/12/23) Past Medical History Past Medical History: reports: Anxiety, Asthma, Depression, Other (STELARA INJECTIONS FOR PSORIASIS; compressed nerve in groin; hard of hearing) Social History The patient's occupation is a [employer]. Patient is / and lives in . Have you smoked in the past 12 months: No Alcohol use: Yes Alcohol amount and frequency: ONCE OR TWICE 2 X A YR Caffeine use: No Family History Family history of sleep disordered breathing: Yes Family Hx Sleep Apnea: Father: Snoring Allergies and Home Medications Known drug allergies: Yes (as listed) Drug allergies reviewed: Yes Home medication list reviewed: Yes Allergy and home medication list: Allergies shellfish derived Allergy (Severe, Verified 07/22/23 16:08) Anaphylaxis reports recent itchy tongue and throat with shellfish ingestion shrimp Allergy (Severe, Verified 07/22/23 16:08) Anaphylaxis reports recent itchy tongue and throat with shellfish ingestion Penicillins Allergy (Verified 07/22/23 16:08) Rash Home Medications Medication Instructions Recorded Confirmed Last Taken Type Montelukast [Singulair] 10 mg PO QPM 12/20/18 07/23/23 05/22/22 History Albuterol Sulfate [Proair 2 puffs INH TID #2 12/23/18 07/23/23 05/22/22 Rx Respiclick] Citalopram [CeleXA] 1 tab PO DAILY 1107/23/23 05/22/22 History Desonide [Desowen] See Rx Instructions .ROUTE .COMPLEX 07/23/23 07/23/23 Unknown History HYDROcod/ACETAM 5/325 [Manlius 5/325] See Rx Instructions .ROUTE .COMPLEX 07/23/23 07/23/23 Unknown History Upadacitinib [Rinvoq] See Rx Instructions .ROUTE .COMPLEX 07/23/23 07/23/23 Unknown History Ustekinumab [Stelara] See Rx Instructions .ROUTE .COMPLEX 07/23/23 07/23/23 Unknown History Review of Systems Weight gain over past 5 years: 30 Cardiovascular: denies: high blood pressure Respiratory: reports: shortness of breath, wheeze, sputum production Gastrointestinal: reports: heartburn, vomitting, diarrhea, abdominal pain Psychiatric: reports: anxiety, depression Ear/Nose/Throat: reports: sinus problems, dry mouth/throat, wisdom teeth removed. denies: tonsillectomy Musculoskeletal: reports: joint pain, neck pain, back pain, mobility problems Immunologic: reports: sneezing, rash, itching, allergies to food or environment Physical Exam Vital signs obtained and entered by: LEDY Bonilla MA Blood Pressure: 155/92 (LEFT ARM) Cuff size: regular Heart Rate: 95 O2 Saturation: 97 Height: 5 ft 6 in Weight: 258 lb Body Mass Index: 41.6 BMI Classification: Morbidly Obese Neck circumference: 17 Mouth and throat: narrow oropharynx Soft palate: long Hard palate: normal Uvula: normal Uvula visualization: 25% Mallampati Class III Tongue: normal in size Tonsils: small Neck: normal w/o lymphadenopathy or thyromegaly Heart: regular rate and rhythm Lungs: clear bilaterally Impression and Plan 1. Suspected Obstructive Sleep Apnea-Hypopnea Syndrome, as suggested by a history of loud and irregular snoring, observed cessation of breath while asleep, gasping or choking in sleep, morning headache, unrefreshed sleep, cognitive impairment, and excessive daytime sleepiness. Narrow oropharynx and obesity are common predisposing factors for obstructive sleep apnea-hypopnea syndrome. I recommend proceeding to polysomnography to confirm the diagnosis and to assess severity. If the patient has significant sleep disordered breathing, a manual CPAP titration study will also be performed to find the optimal treatment pressure. I informed the patient of what the sleep studies involve and after some discussion, obtained agreement to proceed. The pathophysiology of obstructive sleep apnea-hypopnea syndrome was discussed with the patient and health risks of cardiovascular and cerebrovascular disease if not treated. Risks of drowsy driving discussed in detail and patient advised to avoid long distance driving and to wire puller at the first sign of drowsiness. Patient agreed to plan. * Schedule polysomnography. * Avoid long distance driving or driving when feeling sleepy. * Avoid alcohol, sedative and muscle relaxant around bedtime. * Attempt to lose weight. * Review instructions provided by trained office staff on how to prepare for the sleep study. * Return for follow-up after sleep study completed. Counseling Topics: Weight loss health impact Plan: PSG/HST Visit Type: In Office Time Spent with Patient (minutes): 44 Provider Statement: I spent 100% of the Face to Face Visit with the patient with greater than 50% spent counseling the patient and coordination of care.
[2023-07-23 18:19] VITALS: BP 155/92; O2SAT 97
== END 2023-07-23 15:46 | disposition home or self-care (01) ==
LOC: SC 15:45
PROVIDERS: ATTEND Nurse Practitioner Family
DX: G47.10 Hypersomnia, unspecified (principal); R06.83 Snoring; R06.81 Apnea, not elsewhere classified; G47.8 Other sleep disorders; R51.9 Headache, unspecified; R41.89 Other symptoms and signs involving cognitive functions and awareness; E66.01 Morbid (severe) obesity due to excess calories; Z68.41 Body mass index [BMI] 40.0-44.9, adult
CPT/HCPCS: 99203; G0463; 99212